=== PATIENT | female | born 1940 | race Caucasian/White ===

== ENCOUNTER 2017-05-07 18:46 | Emergency (ER) | payer MEDICARE, OTHER ==
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
--- NOTE | 2017-05-07 19:58 | CT ---
EXAMINATION TYPE: CT brain cspine wo con, CT facial bones wo con DATE OF EXAM: 05/07/2017 COMPARISON: CT brain January 26, 2015 HISTORY: Fall today. Left orbital bruising headache and neck pain. CT DLP: 1412.83 (accession [id number]), 499.49 (accession [id number]) mGycm. Automated Exposure Control f or Dose Reduction was Utilized. TECHNIQUE: CT scan of the head , facial bones, and cervical spine are all performed without contrast. FINDINGS: There is no acute intracranial hemorrhage or midline shift identified. There is ventricul ar and sulcal prominence consistent with diffuse cerebral atrophy. Some low-attenuation periventricu lar white matter is redemonstrated. The calvarium is intact. Nasal bridge and bones are intact. Orbital floors and gutierrez are intact. The globes are intact bilater ally. Intraconal fat is preserved bilaterally. The zygomatic arches are intact bilaterally. There is small hematoma over the left zygoma noted extending to left lateral infraorbital level seen best maureen nal image 21. There is degenerative change in bilateral temporomandibular joints again seen with flat tened mandibular condyles and joint space loss. Pterygoid plates are intact. Visualized paranasal sin uses are clear. Cervical spine is visualized in its entirety from C1 through upper thoracic levels and demonstrates s atisfactory alignment without evidence of acute fracture or dislocation. Prevertebral soft tissue ap pears within normal limits. The C1-C2 articulation is within normal limits on the coronal images. Osseous structures are demineralized. There is 5 mm cystic lesion in the dens just left of midline pr esumed benign. Vertebral body heights and disc space heights are fairly well-maintained. Spinal canal is preserved. Review of axial images shows multilevel uncovertebral facet degenerative changes bilat erally contributing to multilevel neural foraminal narrowing. There is calcified pleural parenchymal scarring in the left lung apex and some pleural thickening in the right lung apex noted. Mild to mode rate calcified plaque in bilateral carotid bulbs is present. IMPRESSION: 1. There is no acute fracture or dislocation evident in the cervical spine. 2. No acute intracranial hemorrhage or midline shift is seen. There is mild diffuse cerebral atrophy and chronic small vessel ischemic change redemonstrated. 3. No acute facial bone fracture or dislocation. Small hematoma left zygoma extending to lateral infr aorbital region is present.
[2017-05-07 20:52] VITALS: BP 128/83; PULSE 81; RESP 19; TEMP 97.7
== END 2017-05-07 20:50 | disposition home or self-care (01) ==
LOC: EC 18:46
DX: S00.83XA Contusion of other part of head, initial encounter (principal); S05.12XA Contusion of eyeball and orbital tissues, left eye, initial encounter; M54.2 Cervicalgia; S80.211A Abrasion, right knee, initial encounter; S80.212A Abrasion, left knee, initial encounter; R40.2412 Glasgow coma scale score 13-15, at arrival to emergency department; M25.532 Pain in left wrist; E11.9 Type 2 diabetes mellitus without complications; W01.198A Fall on same level from slipping, tripping and stumbling with subsequent striking against other object, initial encounter; G40.909 Epilepsy, unspecified, not intractable, without status epilepticus; Z79.84 Long term (current) use of oral hypoglycemic drugs; Z79.899 Other long term (current) drug therapy; Z88.5 Allergy status to narcotic agent; Y93.01 Activity, walking, marching and hiking; E07.9 Disorder of thyroid, unspecified
CPT/HCPCS: 70450; 70486; 72125; 99284

== ENCOUNTER 2017-11-02 12:34 | Inpatient (IN) | payer MEDICARE, OTHER ==
[2017-11-02 12:50] LABS: Glucose,Whole Blood >600 mg/dL (75-99)
[2017-11-02] MEDS ORDERED: ONDANSETRON 4 MG/2 ML VIAL IVP STA (12:56)
[2017-11-02] MEDS ORDERED: SODIUM CHLORIDE 0.9% 1,000 ML IV STA (12:56)
[2017-11-02] MEDS ORDERED: SODIUM CHLORIDE 0.9% 2,000 ML IV STA (12:56)
[2017-11-02] MEDS ORDERED: INSULIN REGULAR 100 UNIT in SODIUM CHLORIDE 0.9% 100 ML IV ONE (13:02)
[2017-11-02 13:40] LABS: Basophils % (A) 0 %; Eosinophils % (A) 0 %; HCT 38.5 % (34.0-46.0); HGB 13.1 gm/dL (11.4-16.0); Lymphocytes # (A) 1.5 k/uL (1.0-4.8); Lymphocytes % (A) 19 %; MCH 30.4 pg (25.0-35.0); MCHC 33.9 g/dL (31.0-37.0); MCV 89.6 fL (80.0-100.0); Monocytes # (A) 0.5 k/uL (0-1.0); Monocytes % (A) 7 %; Neutrophils # (A) 5.6 k/uL (1.3-7.7); Neutrophils % (A) 73 %; Platelet Count 214 k/uL (150-450); RDW 12.3 % (11.5-15.5); WBC 7.6 k/uL (3.8-10.6)
[2017-11-02 13:41] LABS: Appearance,Urine Clear (Clear); Bilirubin,Urine Negative (Negative); Blood,Urine Negative (Negative); Color,Urine Light Yellow; Glucose,Urine (UA) 4+ (Negative); Ketones,Urine Negative (Negative); Leukocyte Esterase,Urine Negative (Negative); Nitrite,Urine Negative (Negative); PH, Urine 6.5 (5.0-8.0); Protein,Urine Negative (Negative); Urobilinogen,Urine <2.0 mg/dL (<2.0)
--- NOTE | 2017-11-02 13:47 | ED ---
General Adult HPI - General Chief complaint: Recheck/Abnormal Lab/Rx Stated complaint: High Sugar-diabetic Time Seen by Provider: 11/02/17 12:50 Source: patient Mode of arrival: ambulatory Limitations: no limitations - History of Present Illness Initial comments: 77 years old female was sent in by Dr. Bettencourt for high sugar she said her sugar has been I for the last 4 months and she said it started with the some infection in her mouth and when she was started some antibiotics she denies any headaches no blurred vision no slurred speech no chest pain no shortness of breath he denies any nausea vomiting and abdominal pain or or any other symptoms of diabetic ketoacidosis no frequency urgency dysuria no symptoms of TIA or CVA - Related Data Home Medications Medication Instructions Recorded Confirmed Butalb/APAP/Caff 50-325-40Mg 1 tab PO TID PRN 05/07/17 11/02/17 [Fioricet 50-325-40] Levothyroxine Sodium [Synthroid] 50 mcg PO QAM 05/07/17 11/02/17 Nortriptyline [Pamelor] 25 mg PO HS 05/07/17 11/02/17 Phenytoin Sodium Extended 100 mg PO QAM 05/07/17 11/02/17 [Dilantin] Phenytoin Sodium Extended 200 mg PO HS 05/07/17 11/02/17 [Dilantin] Spironolactone-Hctz 25-25Mg 1 tab PO QAM 05/07/17 11/02/17 [Aldactazide 25-25Mg] glipiZIDE [Glucotrol] 5 mg PO BID 05/07/17 11/02/17 ALPRAZolam [Xanax] 1 mg PO TID PRN 11/02/17 11/02/17 Ibuprofen [Motrin] 600 mg PO TID PRN 11/02/17 11/02/17 Lactulose 10 gm PO DAILY PRN 11/02/17 11/02/17 Allergies Allergy/AdvReac Type Severity Reaction Status Date / Time hydrocodone [From Vicodin] AdvReac Nausea & Verified 11/02/17 13:20 Vomiting Review of Systems ROS Statement: Those systems with pertinent positive or pertinent negative responses have been documented in the HPI. ROS Other: All systems not noted in ROS Statement are negative. Past Medical History Past Medical History: Diabetes Mellitus, Seizure Disorder, Thyroid Disorder History of Any Multi-Drug Resistant Organisms: None Reported Past Surgical History: Cholecystectomy Past Psychological History: No Psychological Hx Reported Smoking Status: Never smoker Past Alcohol Use History: Rare Past Drug Use History: None Reported General Exam - General Exam Comments Initial Comments: General: The patient is awake and alert, in no distress, and does not appear acutely ill. GCS is 15 Skin: Skin is warm and dry and she looks very dehydrated Eye: Pupils are equal, round and reactive to light, extra-ocular movements are intact; there is normal conjunctiva bilaterally. Ears, nose, mouth and throat: Definitely dehydrated Neck: The neck is supple, there is no tenderness Cardiovascular: There is a regular rate and rhythm. No murmur, rub or gallop is appreciated. Respiratory: To auscultation bilateral, no wheezing no rhonchi no distress respiratory milton noticed Gastrointestinal: Soft, non-distended, non-tender abdomen without masses or organomegaly noted. There is no rebound or guarding present. Bowel sounds are unremarkable. Back: There is no tenderness to palpation in the midline. There is no obvious deformity. Musculoskeletal: Normal ROM, no tenderness, There is no pedal edema. There is no calf tenderness or swelling. No cords were appreciated. Neurological: CN II-XII intact, Cranial nerves III through XII are intact. There are no obvious motor or sensory deficits. Coordination appears grossly intact. Speech is normal. Psychiatric: Cooperative, appropriate mood & affect, normal judgment. Limitations: no limitations Course Vital Signs 11/02/17 12:42 Temperature 98.3 F Pulse Rate 79 Respiratory 20 Rate Blood Pressure 138/69 O2 Sat by Pulse 98 Oximetry She was reassessed she noticed that her CBC is unremarkable CO2 is 29 [id number] has no ketones she is definitely not a ketoacidosis is blood sugars so high and she is so dehydrated her on now insulin infusion she be admitted to Dr. Molina service this was discussed with the patient and patient is agreeable with the Medical Decision Making - Lab Data Result diagrams: 11/02/17 13:24 11/02/17 13:24 Lab Results 11/02/17 11/02/17 11/02/17 Range/Units 12:47 13:24 13:24 WBC 7.6 (3.8-10.6) k/uL RBC 4.30 (3.80-5.40) m/uL Hgb 13.1 (11.4-16.0) gm/dL Hct 38.5 (34.0-46.0) % MCV 89.6 (80.0-100.0) fL MCH 30.4 (25.0-35.0) pg MCHC 33.9 (31.0-37.0) g/dL RDW 12.3 (11.5-15.5) % Plt Count 214 (150-450) k/uL Neutrophils % 73 % Lymphocytes % 19 % Monocytes % 7 % Eosinophils % 0 % Basophils % 0 % Neutrophils # 5.6 (1.3-7.7) k/uL Lymphocytes # 1.5 (1.0-4.8) k/uL Monocytes # 0.5 (0-1.0) k/uL Eosinophils # 0.0 (0-0.7) k/uL Basophils # 0.0 (0-0.2) k/uL Sodium 133 L (137-145) mmol/L Potassium 4.3 (3.5-5.1) mmol/L Chloride 91 L (98-107) mmol/L Carbon Dioxide 29 (22-30) mmol/L Anion Gap 13 mmol/L BUN 19 H (7-17) mg/dL Creatinine 0.50 L (0.52-1.04) mg/dL Est GFR (CKD-EPI)AfAm >90 (>60 ml/min/1.73 sqM) Est GFR (CKD-EPI)NonAf >90 (>60 ml/min/1.73 sqM) Glucose 655 H* (74-99) mg/dL POC Glucose (mg/dL) >600 H (75-99) mg/dL POC Glu Office Clerk Routine ID Plasma Lactic Acid Hany (0.7-2.0) mmol/L Calcium 9.5 (8.4-10.2) mg/dL Total Bilirubin 0.4 (0.2-1.3) mg/dL AST 20 (14-36) U/L ALT 23 (9-52) U/L Alkaline Phosphatase 137 H (38-126) U/L Total Protein 6.8 (6.3-8.2) g/dL Albumin 3.9 (3.5-5.0) g/dL Amylase 55 (30-110) U/L Lipase 268 (23-300) U/L Urine Color Urine Appearance (Clear) Urine pH (5.0-8.0) Ur Specific [place] (1.001-1.035) Urine Protein (Negative) Urine Glucose (UA) (Negative) Urine Ketones (Negative) Urine Blood (Negative) Urine Nitrite (Negative) Urine Bilirubin (Negative) Urine Urobilinogen (<2.0) mg/dL Ur Leukocyte Esterase (Negative) 11/02/17 11/02/17 Range/Units 13:24 13:24 WBC (3.8-10.6) k/uL RBC (3.80-5.40) m/uL Hgb (11.4-16.0) gm/dL Hct (34.0-46.0) % MCV (80.0-100.0) fL MCH (25.0-35.0) pg MCHC (31.0-37.0) g/dL RDW (11.5-15.5) % Plt Count (150-450) k/uL Neutrophils % % Lymphocytes % % Monocytes % % Eosinophils % % Basophils % % Neutrophils # (1.3-7.7) k/uL Lymphocytes # (1.0-4.8) k/uL Monocytes # (0-1.0) k/uL Eosinophils # (0-0.7) k/uL Basophils # (0-0.2) k/uL Sodium (137-145) mmol/L Potassium (3.5-5.1) mmol/L Chloride (98-107) mmol/L Carbon Dioxide (22-30) mmol/L Anion Gap mmol/L BUN (7-17) mg/dL Creatinine (0.52-1.04) mg/dL Est GFR (CKD-EPI)AfAm (>60 ml/min/1.73 sqM) Est GFR (CKD-EPI)NonAf (>60 ml/min/1.73 sqM) Glucose (74-99) mg/dL POC Glucose (mg/dL) (75-99) mg/dL POC Glu Office Clerk Routine ID Plasma Lactic Acid Hany 1.7 (0.7-2.0) mmol/L Calcium (8.4-10.2) mg/dL Total Bilirubin (0.2-1.3) mg/dL AST (14-36) U/L ALT (9-52) U/L Alkaline Phosphatase (38-126) U/L Total Protein (6.3-8.2) g/dL Albumin (3.5-5.0) g/dL Amylase (30-110) U/L Lipase (23-300) U/L Urine Color Light Yellow Urine Appearance Clear (Clear) Urine pH 6.5 (5.0-8.0) Ur Specific [place] 1.030 (1.001-1.035) Urine Protein Negative (Negative) Urine Glucose (UA) 4+ H (Negative) Urine Ketones Negative (Negative) Urine Blood Negative (Negative) Urine Nitrite Negative (Negative) Urine Bilirubin Negative (Negative) Urine Urobilinogen <2.0 (<2.0) mg/dL Ur Leukocyte Esterase Negative (Negative) Disposition Clinical Impression: Hyperglycemia Disposition: ADMITTED IP TO THIS [facility] Condition: Good Referrals: Ling Bains MD [Primary Care Provider] - 1-2 days
[2017-11-02 13:48] LABS: ALT 23 U/L (9-52); AST 20 U/L (14-36); Albumin 3.9 g/dL (3.5-5.0); Alkaline Phosphatase 137 U/L (38-126); Amylase 55 U/L (30-110); Anion Gap 13 mmol/L; Blood Urea Nitrogen 19 mg/dL (7-17); Calcium 9.5 mg/dL (8.4-10.2); Carbon Dioxide 29 mmol/L (22-30); Chloride 91 mmol/L (98-107); Lipase 268 U/L (23-300); Potassium 4.3 mmol/L (3.5-5.1); Sodium 133 mmol/L (137-145); Total Bilirubin 0.4 mg/dL (0.2-1.3); Total Protein 6.8 g/dL (6.3-8.2)
[2017-11-02 13:59] LABS: Glucose 655 mg/dL (74-99)
[2017-11-02] MEDS ORDERED: POTASSIUM BICARBONATE/CIT AC 20 MEQ TABLET.EFF PO ONE (14:02)
[2017-11-02] MEDS ORDERED: NALOXONE 0.4 MG/ML 1 ML VIAL IV PRN (14:09)
[2017-11-02] MEDS ORDERED: ALPRAZolam 1 MG TAB PO PRN (14:12)
[2017-11-02] MEDS ORDERED: LACTULOSE 20 GM/30 ML CUP PO PRN (14:12)
[2017-11-02] MEDS ORDERED: BUTALB/APAP/CAFF 50-325-40MG TAB PO PRN (14:12)
[2017-11-02 14:40] LABS: Glucose,Whole Blood 471 mg/dL (75-99)
[2017-11-02] MEDS ORDERED: IBUPROFEN 600 MG TAB PO PRN (15:03)
--- NOTE | 2017-11-02 15:22 | XR ---
EXAMINATION: XR chest 2V DATE AND TIME: 11/02/2017 2:59 PM ORDERING PROVIDER: Melissa Morrison MD CLINICAL INDICATION: abdominal pain TECHNIQUE: PA and lateral COMPARISON: None. DESCRIPTION: The lungs are clear. The pleural spaces are negative. The cardiac silhouette is not enlarged. The mediastinal and pleural silhouettes are unremarkable. The skeletal structures are intact without focal findings. The soft tissues are unremarkable. IMPRESSION: NO ACUTE PROCESS.
--- NOTE | 2017-11-02 15:24 | XR ---
EXAMINATION TYPE: XR KUB, 2 views DATE OF EXAM: 11/02/2017 COMPARISON: NONE HISTORY: Pain TECHNIQUE: Upright views FINDINGS: There is no pneumoperitoneum or pneumatosis. The bowel gas pattern is negative for obstruct ion. There is, however, a prominent volume of stool throughout the colon. No acute bony or soft tissue findings. IMPRESSION: PROMINENT VOLUME OF PANCOLONIC STOOL.
[2017-11-02 15:25] LABS: Glucose,Whole Blood 300 mg/dL (75-99)
[2017-11-02 15:45] VITALS: RESP 16
[2017-11-02 17:54] LABS: Glucose,Whole Blood 174 mg/dL (75-99)
[2017-11-02] MEDS: glipiZIDE 5 MG TAB PO SCH (18:14)
[2017-11-02 18:34] VITALS: BMI 18.1
[2017-11-02] MEDS ORDERED: ACETAMINOPHEN TAB 500 MG TAB PO PRN (18:46)
[2017-11-02 19:40] LABS: Glucose,Whole Blood 164 mg/dL (75-99)
--- NOTE | 2017-11-02 19:56 | HP ---
HISTORY AND PHYSICAL CHIEF COMPLAINT: High blood sugars DATE OF SERVICE: 11/02/2017. HISTORY OF PRESENT ILLNESS: This 77-year-old woman with a past history of diabetes, seizures, hypothyroidism , being followed by Dr. Bains in the outpatient setting recently had candidiasis of the mouth. The patient was taking nystatin orally. The patient was noted to have high blood sugars. Readings were above the chart today and the patient was direct admit to [facility] and found to have blood sugars of 655, ketones negative. The patient is started on insulin drip at 4 units/hours. Sugars are coming down to 174. There is no history of fever, rigors. No history of headache, loss of conscious or seizures. PAST MEDICAL HISTORY: History of diabetes, seizure disorder, hypothyroidism, cholecystectomy, tubal ligation. HOME MEDICATIONS: 1. Glucotrol 5 mg p.o. b.i.d. 2. Aldactazide 1 p.o. q.a.m. 3. Dilantin 100 mg q.a.m. and 200 mg q.h.s. 4. Pamelor nortriptyline 25 mg q.h.s. 5. Synthroid 50 mcg p.o. q.a.m. 6. Lactose 10 g p.o. daily p.r.n. 7. Motrin 600 mg t.i.d. p.r.n. 8. Fioricet 1 p.o. t.i.d. p.r.n. 9. Xanax 1 mg p.o. t.i.d. p.r.n. ALLERGIES: VICODIN. FAMILY HISTORY: History of cancer. SOCIAL HISTORY: No history of smoking, no history of alcohol. REVIEW OF SYSTEMS: ENT: Mentioned earlier. CARDIOVASCULAR: As mentioned. RESPIRATORY: As mentioned. GI: As mentioned. : No dysuria. NERVOUS SYSTEM: No numbness, weakness. ALLERGY/IMMUNOLOGY: No history of asthma or hay fever. MUSCULOSKELETAL: As mentioned. HEMATOLOGY: No history of anemia. ENDOCRINE: As mentioned earlier. CONSTITUTIONAL: As mentioned earlier. DERMATOLOGY: Negative. RHEUMATOLOGY: Negative. PSYCHIATRY: As mentioned earlier. PHYSICAL EXAMINATION: Alert and oriented x3. Pulse is 75, blood pressure 125/60, respirations 16, temperature 98 degrees, pulse ox 98% room air. HEENT: Conjunctivae normal. Oral mucosa moist. NECK: No jugular venous distention. No carotid bruit. No lymph node enlargement. CARDIOVASCULAR: S1, S2. RESPIRATORY: Breath sounds diminished in the bases. A few scattered rhonchi. No crackles. ABDOMEN: Soft, nontender. No mass palpable. LEGS: No edema, no swelling. NERVOUS SYSTEM: Higher functions as mentioned earlier, moves all 4 limbs, no focal motor deficits. LYMPHATICS: No lymphadenopathy in the neck, axillae, groin. SKIN: No ulcer, rash or bleeding. LABS: CBC within normal. Sodium 133, potassium 4.3, glucose 655. ASSESSMENT: 1. Poorly controlled diabetes mellitus and diabetic hyperosmolar diabetic state. 2. Diabetes mellitus type 2. 3. Recent oral candidiasis. 4. Hyponatremia. 5. History of seizure disorder. 6. Hypothyroidism. 7. History of cholecystectomy. 8. History of tubal ligation. 9. FULL CODE. RECOMMENDATIONS AND DISCUSSION: This 77-year-old woman who presented with multiple complex medical issues, we will monitor the patient closely. Continue the current management and symptomatic treatment. Continue with insulin drip. Otherwise resume the home medications. Accu-Cheks a.c. and at bedtime once drip is over. Otherwise, I would also recommend continue with nystatin and also recommend multivitamin supplementation. The prognosis is guarded because of multiple complex medical issues and further recommendations to follow. I would also recommend copy forwarded to Dr. Bains who is the primary physician. WALLY / ARNEL: [id number] / [id number]
[2017-11-02] MEDS: PHENYTOIN SODIUM EXTENDED 100 MG CAP PO SCH (20:42)
[2017-11-02] MEDS: NORTRIPTYLINE 25 MG CAP PO SCH (20:42)
[2017-11-02] MEDS: HEPARIN SODIUM,PORCINE 5,000 UNIT/ML 1 ML VIAL SQ SCH (20:43)
[2017-11-02] MEDS: NYSTATIN 100,000 UNIT/ML SUSP 500,000 UNIT/5 ML CUP PO SCH ×2 (20:43→22:43)
[2017-11-02 22:03] LABS: Glucose,Whole Blood 223 mg/dL (75-99)
[2017-11-03 00:47] LABS: Glucose,Whole Blood 65 mg/dL (75-99)
[2017-11-03 01:26] LABS: Glucose,Whole Blood 120 mg/dL (75-99)
[2017-11-03 02:10] LABS: Glucose,Whole Blood 152 mg/dL (75-99)
[2017-11-03 03:14] LABS: Glucose,Whole Blood 180 mg/dL (75-99)
[2017-11-03 05:15] LABS: Glucose,Whole Blood 182 mg/dL (75-99)
[2017-11-03] MEDS: LEVOTHYROXINE 50 MCG TAB PO SCH (06:10)
[2017-11-03 07:10] LABS: Glucose,Whole Blood 155 mg/dL (75-99)
[2017-11-03] MEDS: HEPARIN SODIUM,PORCINE 5,000 UNIT/ML 1 ML VIAL SQ SCH ×2 (07:36→21:54)
[2017-11-03] MEDS: NYSTATIN 100,000 UNIT/ML SUSP 500,000 UNIT/5 ML CUP PO SCH ×4 (07:36→21:54)
[2017-11-03] MEDS: SPIRONOLACTONE-HCTZ 25-25MG 1 EACH TAB PO SCH (07:37)
[2017-11-03] MEDS: PHENYTOIN SODIUM EXTENDED 100 MG CAP PO SCH ×2 (07:37→21:55)
[2017-11-03] MEDS: glipiZIDE 5 MG TAB PO SCH ×2 (08:02→17:23)
[2017-11-03 09:00] LABS: Glucose,Whole Blood 223 mg/dL (75-99)
[2017-11-03 11:28] LABS: Glucose,Whole Blood 305 mg/dL (75-99)
--- NOTE | 2017-11-03 11:33 | P.PN ---
Subjective Progress Note Date: 11/03/17 Principal diagnosis: Hyperglycemia, dehydration This is a 77-year-old female patient who follows with Dr. Bains as an outpatient that was directly admitted secondary to uncontrolled blood glucose. The patient was found to have a blood sugar greater than 600 on admission. She' s been on oral agents at home and the family states that she has poor oral intake mostly because she is afraid of her lites sugar being elevated. The patient has never had any outpatient diabetes education that she is aware of. The family is at the bedside during my examination and are helpful in obtaining the patient's history. She is alert and oriented 3. She states she feels much better than yesterday. Her blood sugars down to 155 today and we will stop her drip. Continue her Glucotrol and add sliding scale. I will place an order for diabetes education and the family is willing to go with the patient for outpatient classes. We will obtain a hemoglobin A1c. Objective - Vital Signs Vital signs: Vital Signs Temp 98.6 F 11/03/17 07:00 Pulse 68 11/03/17 07:00 Resp 16 11/03/17 07:00 BP 102/65 11/03/17 07:00 Pulse Ox 97 11/03/17 07:00 Intake & Output 11/02/17 11/03/17 11/03/17 18:59 06:59 18:59 Intake Total 17.944 602.571 2.222 Balance 17.944 602.571 2.222 Weight 40.8 kg 40.8 kg Intake: Intake, IV Titration 17.944 12.571 2.222 Amount Insulin Regular 100 unit 17.944 12.571 2.222 In Sodium Chloride 0.9% 100 ml @ 3 UNIT/HR 3.03 mls/hr IV .Q24H ONE Rx#: [id number] Oral 590 Other: Voiding Method Toilet Toilet Toilet # Voids 3 3 - Constitutional General appearance: Present: thin - EENT Eyes: Present: normal appearance ENT: Present: normal oropharynx Ears: bilateral: normal - Neck Neck: Present: normal ROM - Respiratory Respiratory: bilateral: CTA - Cardiovascular Rhythm: regular Heart sounds: normal: S1, S2 - Gastrointestinal General gastrointestinal: Present: normal bowel sounds - Neurologic Neurologic: Present: CNII-XII intact - Musculoskeletal Musculoskeletal: Present: generalized weakness - Psychiatric Psychiatric: Present: A&O x's 3 - Labs CBC & Chem 7: 11/02/17 13:24 11/02/17 13:24 Labs: Abnormal Lab Results - Last 24 Hours (Table) 11/02/17 11/02/17 11/02/17 Range/Units 12:47 13:24 13:24 Sodium 133 L (137-145) mmol/L Chloride 91 L (98-107) mmol/L BUN 19 H (7-17) mg/dL Creatinine 0.50 L (0.52-1.04) mg/dL Glucose 655 H* (74-99) mg/dL POC Glucose (mg/dL) >600 H (75-99) mg/dL Alkaline Phosphatase 137 H (38-126) U/L Urine Glucose (UA) 4+ H (Negative) 11/02/17 11/02/17 11/02/17 Range/Units 14:23 15:20 17:44 Sodium (137-145) mmol/L Chloride (98-107) mmol/L BUN (7-17) mg/dL Creatinine (0.52-1.04) mg/dL Glucose (74-99) mg/dL POC Glucose (mg/dL) 471 H 300 H 174 H (75-99) mg/dL Alkaline Phosphatase (38-126) U/L Urine Glucose (UA) (Negative) 11/02/17 11/02/17 11/03/17 Range/Units 19:39 22:01 00:41 Sodium (137-145) mmol/L Chloride (98-107) mmol/L BUN (7-17) mg/dL Creatinine (0.52-1.04) mg/dL Glucose (74-99) mg/dL POC Glucose (mg/dL) 164 H 223 H 65 L (75-99) mg/dL Alkaline Phosphatase (38-126) U/L Urine Glucose (UA) (Negative) 11/03/17 11/03/17 11/03/17 Range/Units 01:24 02:10 03:13 Sodium (137-145) mmol/L Chloride (98-107) mmol/L BUN (7-17) mg/dL Creatinine (0.52-1.04) mg/dL Glucose (74-99) mg/dL POC Glucose (mg/dL) 120 H 152 H 180 H (75-99) mg/dL Alkaline Phosphatase (38-126) U/L Urine Glucose (UA) (Negative) 11/03/17 11/03/17 11/03/17 Range/Units 05:14 06:59 08:58 Sodium (137-145) mmol/L Chloride (98-107) mmol/L BUN (7-17) mg/dL Creatinine (0.52-1.04) mg/dL Glucose (74-99) mg/dL POC Glucose (mg/dL) 182 H 155 H 223 H (75-99) mg/dL Alkaline Phosphatase (38-126) U/L Urine Glucose (UA) (Negative) Microbiology - Last 24 Hours (Table) 11/02/17 13:24 Urine Culture - Final Urine,Clean Catch Assessment and Plan Assessment: Diabetic hyperosmolar hyperglycemia Acute dehydration Diabetes mellitus type 2 uncontrolled Hyponatremia Seizure disorder Hypothyroidism Hyponatremia Plan: Stop insulin drip. Continue with oral Glucotrol and add sliding scale. Accu- Cheks before meals and at bedtime. Consult diabetes education. Obtain hemoglobin A1c. If this is greater than 10 she will be a candidate for insulin at home until her A1c is less than 8%. Repeat labs in the morning. Replace electrolytes per protocol. Overall the patient is doing well and we will continue with treatment and plan for discharge home in the next 24-48 hours.
[2017-11-03] MEDS: FOLIC ACID 1 MG TAB PO SCH (12:21)
[2017-11-03] MEDS: MULTIVITAMINS, THERA 1 EACH TAB PO SCH (12:21)
[2017-11-03] MEDS: INSULIN ASPART 100 UNIT/ML 1 ML 10 ML VIAL SQ SCH ×5 (12:22→21:53)
[2017-11-03 16:49] LABS: Glucose,Whole Blood 217 mg/dL (75-99)
[2017-11-03 20:10] LABS: Glucose,Whole Blood 116 mg/dL (75-99)
[2017-11-03 20:22] LABS: Hemoglobin A1C 14.6 % (4.0-6.0)
[2017-11-03] MEDS: NORTRIPTYLINE 25 MG CAP PO SCH (21:55)
[2017-11-03 22:26] VITALS: PULSE 69
[2017-11-04] MEDS: LEVOTHYROXINE 50 MCG TAB PO SCH (06:20)
[2017-11-04 07:30] LABS: Glucose,Whole Blood 160 mg/dL (75-99)
[2017-11-04] MEDS: glipiZIDE 5 MG TAB PO SCH (07:33)
[2017-11-04] MEDS: SPIRONOLACTONE-HCTZ 25-25MG 1 EACH TAB PO SCH (07:34)
[2017-11-04] MEDS: HEPARIN SODIUM,PORCINE 5,000 UNIT/ML 1 ML VIAL SQ SCH (07:34)
[2017-11-04] MEDS: NYSTATIN 100,000 UNIT/ML SUSP 500,000 UNIT/5 ML CUP PO SCH ×2 (07:34→12:44)
[2017-11-04] MEDS: PHENYTOIN SODIUM EXTENDED 100 MG CAP PO SCH (07:34)
[2017-11-04] MEDS: INSULIN ASPART 100 UNIT/ML 1 ML 10 ML VIAL SQ SCH ×4 (07:35→12:45)
[2017-11-04 07:52] LABS: Basophils % (A) 0 %; Eosinophils # (A) 0.1 k/uL (0-0.7); Eosinophils % (A) 2 %; HCT 35.5 % (34.0-46.0); HGB 12.2 gm/dL (11.4-16.0); Lymphocytes # (A) 1.9 k/uL (1.0-4.8); Lymphocytes % (A) 32 %; MCHC 34.4 g/dL (31.0-37.0); MCV 90.1 fL (80.0-100.0); Mean Platelet Volume 7.2; Monocytes # (A) 0.4 k/uL (0-1.0); Monocytes % (A) 7 %; Neutrophils # (A) 3.2 k/uL (1.3-7.7); Neutrophils % (A) 55 %; Platelet Count 201 k/uL (150-450); RBC 3.93 m/uL (3.80-5.40); RDW 12.3 % (11.5-15.5); WBC 5.8 k/uL (3.8-10.6)
[2017-11-04 08:07] LABS: Anion Gap 8 mmol/L; Blood Urea Nitrogen 9 mg/dL (7-17); Calcium 8.4 mg/dL (8.4-10.2); Carbon Dioxide 27 mmol/L (22-30); Chloride 105 mmol/L (98-107); Glucose 164 mg/dL (74-99); Potassium 3.7 mmol/L (3.5-5.1); Sodium 140 mmol/L (137-145)
[2017-11-04 10:10] VITALS: BP 110/64; TEMP 99.1
[2017-11-04 11:28] LABS: Glucose,Whole Blood 268 mg/dL (75-99)
[2017-11-04] MEDS: MULTIVITAMINS, THERA 1 EACH TAB PO SCH (12:44)
[2017-11-04] MEDS: FOLIC ACID 1 MG TAB PO SCH (12:44)
--- NOTE | 2017-11-04 14:14 | P.DS ---
Providers Date of admission: 11/02/17 14:09 Attending physician: Mirela Molina Primary care physician: Herson Reinoso [facility] Course: 77-year-old female patient who follows with Dr. Bains as an outpatient that was directly admitted secondary to uncontrolled blood glucose. The patient was found to have a blood sugar greater than 600 on admission. She's been on oral agents at home and the family states that she has poor oral intake mostly because she is afraid of her lites sugar being elevated. The patient has never had any outpatient diabetes education that she is aware of. The family is at the bedside during my examination and are helpful in obtaining the patient's history. She is alert and oriented 3. She states she feels much better than yesterday. Her blood sugars down to 155 today and we will stop her drip. Continue her Glucotrol and add sliding scale. I will place an order for diabetes education and the family is willing to go with the patient for outpatient classes. We will obtain a hemoglobin A1c. 11/04/2017 Patient blood sugars are well controlled at this time patient will be discharged today with 22 units of Lantus counseling regarding Lantus use was provided we're able to provide the patient with a pen, glucometer and the test strips will be provided patient need to check the blood sugars twice a day and patient will follow Dr. Bains as an outpatient For rest of the other chronic medical problems please refer to progress note from as today. PHYSICAL EXAMINATION: GENERAL: The patient is alert and oriented x3, not in any acute distress. Well developed, well nourished. HEENT: Pupils are round and equally reacting to light. EOMI. No scleral icterus. No conjunctival pallor. Normocephalic, atraumatic. No pharyngeal erythema. No thyromegaly. CARDIOVASCULAR: S1 and S2 present. No murmurs, rubs, or gallops. PULMONARY: Chest is clear to auscultation, no wheezing or crackles. ABDOMEN: Soft, nontender, nondistended, normoactive bowel sounds. No palpable organomegaly. MUSCULOSKELETAL: No joint swelling or deformity. EXTREMITIES: No cyanosis, clubbing, or pedal edema. NEUROLOGICAL: Gross neurological examination did not reveal any focal deficits. SKIN: No rashes. Patient Condition at Discharge: Good Plan - Discharge Summary New Discharge Prescriptions: New Insulin Glargine,Hum.rec.anlog [Lantus Solostar] 22 unit SQ HS #1 syr Discontinued Spironolactone-Hctz 25-25Mg [Aldactazide 25-25Mg] 1 tab PO QAM No Action glipiZIDE [Glucotrol] 5 mg PO BID Levothyroxine Sodium [Synthroid] 50 mcg PO QAM Phenytoin Sodium Extended [Dilantin] 200 mg PO HS Nortriptyline [Pamelor] 25 mg PO HS Phenytoin Sodium Extended [Dilantin] 100 mg PO QAM Butalb/APAP/Caff 50-325-40Mg [Fioricet 50-325-40] 1 tab PO TID PRN PRN Reason: Headache ALPRAZolam [Xanax] 1 mg PO TID PRN PRN Reason: Anxiety Ibuprofen [Motrin] 600 mg PO TID PRN PRN Reason: Pain Lactulose 10 gm PO DAILY PRN PRN Reason: Constipation Discharge Medication List Butalb/APAP/Caff 50-325-40Mg [Fioricet 50-325-40] 1 tab PO TID PRN 05/07/17 [ History] Levothyroxine Sodium [Synthroid] 50 mcg PO QAM 05/07/17 [History] Nortriptyline [Pamelor] 25 mg PO HS 05/07/17 [History] Phenytoin Sodium Extended [Dilantin] 100 mg PO QAM 05/07/17 [History] Phenytoin Sodium Extended [Dilantin] 200 mg PO HS 05/07/17 [History] glipiZIDE [Glucotrol] 5 mg PO BID 05/07/17 [History] ALPRAZolam [Xanax] 1 mg PO TID PRN 11/02/17 [History] Ibuprofen [Motrin] 600 mg PO TID PRN 11/02/17 [History] Lactulose 10 gm PO DAILY PRN 11/02/17 [History] Insulin Glargine,Hum.rec.anlog [Lantus Solostar] 22 unit SQ HS #1 syr 11/04/17 [ Rx] Follow up Appointment(s)/Referral(s): Ling Bains MD [Primary Care Provider] - 11/12/17 1:30 pm Patient Instructions/Handouts: Insulin Glargine (By injection), Diabetic Hyperglycemia (DC) Discharge Disposition: HOME SELF-CARE
== END 2017-11-04 14:45 | disposition home or self-care (01) | DRG 638 ==
LOC: EC 12:34 → 5MS5E 14:09
PROVIDERS: ADMIT Hospitalist; ATTEND Hospitalist
DX: E11.00 Type 2 diabetes mellitus with hyperosmolarity without nonketotic hyperglycemic-hyperosmolar coma (NKHHC) (principal); E87.1 Hypo-osmolality and hyponatremia; E86.0 Dehydration; G40.909 Epilepsy, unspecified, not intractable, without status epilepticus; E03.9 Hypothyroidism, unspecified; Z79.84 Long term (current) use of oral hypoglycemic drugs; Z90.49 Acquired absence of other specified parts of digestive tract; Z98.51 Tubal ligation status; Z79.1 Long term (current) use of non-steroidal anti-inflammatories (NSAID); Z79.890 Hormone replacement therapy; Z79.891 Long term (current) use of opiate analgesic; Z79.899 Other long term (current) drug therapy; Z88.5 Allergy status to narcotic agent; Z85.9 Personal history of malignant neoplasm, unspecified; Z71.3 Dietary counseling and surveillance; Z71.89 Other specified counseling
CPT/HCPCS: 36415; 71046; 74018; 80048; 80053; 81003; 82150; 83036; 83605; 83690; 85025; 87040; 87086; 96374; 99284

== ENCOUNTER → 2018-08-21 | Outpatient (CLI) | payer MEDICARE, OTHER | END | disposition home or self-care (01) | LOC: LABWHC1 12:48 | PROVIDERS: ATTEND Psychiatry & Neurology Neurology | DX: Z53.9 Procedure and treatment not carried out, unspecified reason (principal) ==

== ENCOUNTER → 2018-08-22 | Outpatient (CLI) | payer MEDICARE, OTHER | LOC: LABWHC1 06:32 | PROVIDERS: ATTEND Psychiatry & Neurology Neurology | DX: G40.909 Epilepsy, unspecified, not intractable, without status epilepticus (principal) | CPT/HCPCS: 36415; 80185 ==

== ENCOUNTER → 2019-04-28 | Outpatient (CLI) | payer MEDICARE, OTHER | END | disposition home or self-care (01) | LOC: LABWHC1 13:36 | PROVIDERS: ATTEND Psychiatry & Neurology Neurology | DX: G40.909 Epilepsy, unspecified, not intractable, without status epilepticus (principal) | CPT/HCPCS: 36415; 80185 ==

== ENCOUNTER → 2019-07-20 | Outpatient (CLI) | payer MEDICARE, OTHER ==
--- NOTE | 2019-08-03 10:54 | P.ARTDOP ---
Arterial Doppler LOWER EXTREMITY ARTERIAL DOPPLER: DATE OF SERVICE: 07/20/2019 Reason for study: Bilateral leg numbness. Doppler waveforms: Multiphasic throughout on the left. Atypical distally on the right. Multiphasic proximally.. Pulse volume recording: []. Pressure gradients: Mild gradient below the knee on the right. Ankle-brachial indices: 0.86 on the right and greater than 1 on the left. Toe pressures: [] on the right, [] on the left Impression: Normal left side. Mild right SFA disease. Clinical correlation suggested.
== END | disposition home or self-care (01) ==
LOC: RADUSWWP 13:29
PROVIDERS: ATTEND Internal Medicine
DX: I70.201 Unspecified atherosclerosis of native arteries of extremities, right leg (principal)
CPT/HCPCS: 93923

== ENCOUNTER → 2020-05-09 | Outpatient (CLI) | payer MEDICARE, OTHER ==
--- NOTE | 2020-05-09 11:05 | XR ---
EXAMINATION TYPE: XR foot complete LT DATE OF EXAM: 05/09/2020 CLINICAL HISTORY: pain TECHNIQUE: Frontal, lateral and oblique images of the left foot are obtained. COMPARISON: None. FINDINGS: There is no acute fracture/dislocation evident. The joint spaces appear within normal valencia its. The overlying soft tissue appears unremarkable. IMPRESSION: There is no acute fracture or dislocation. ICD 10 NO FRACTURE, INITIAL EVALUATION
== END | disposition home or self-care (01) ==
LOC: RADXRMAIN 10:43
PROVIDERS: ATTEND Podiatrist Foot Surgery
DX: M79.675 Pain in left toe(s) (principal)

== ENCOUNTER 2021-08-21 17:31 | Emergency (ER) | payer MEDICARE, OTHER ==
[2021-08-21 18:23] VITALS: RESP 20
[2021-08-21] MEDS ORDERED: SODIUM CHLORIDE 0.9% 500 ML 500 ML IV STA (21:07)
--- NOTE | 2021-08-21 21:23 | XR ---
EXAMINATION TYPE: XR chest 2V DATE OF EXAM: 08/21/2021 COMPARISON: 11/02/2017 HISTORY: Lightheaded. TECHNIQUE: FINDINGS: Heart and mediastinum are normal. The lungs are clear of consolidation. There are no hilar masses. Costophrenic angles are clear. Bony thorax is intact. IMPRESSION: No active cardiopulmonary disease. Normal heart. No change.
--- NOTE | 2021-08-21 22:21 | ED ---
General Adult HPI - General Chief complaint: Upper Respiratory Infection Stated complaint: Covid test Time Seen by Provider: 08/21/21 20:17 Source: patient Mode of arrival: ambulatory Limitations: no limitations - History of Present Illness Initial comments: 81-year-old female patient is presented to the emergency Department with concerns for COVID-19. States she has been having intermittent lightheadedness especially with position change for the last couple of weeks. States she developed some nasal congestion and drainage is concerned she may have the virus. She denies any headache, blurred vision, double vision. Denies numbness, tingling, weakness to her extremities. Denies any blurred or double vision. Denies any nausea or vomiting. Denies diarrhea. States occasionally when she is walking she will lose her balance. She denies the room spinning. Patient denies any recent rash, fever, chills, shortness of breath, chest pain, abdominal pain, nausea, vomiting, diarrhea, constipation, back pain, hematuria, dysuria, urinary urgency, urinary frequency, or any other complaints. - Related Data Home Medications Medication Instructions Recorded Confirmed Butalb/APAP/Caff 50-325-40Mg 1 tab PO TID PRN 05/07/17 11/02/17 [Fioricet 50-325-40] Levothyroxine Sodium [Synthroid] 50 mcg PO QAM 05/07/17 11/02/17 Nortriptyline [Pamelor] 25 mg PO HS 05/07/17 11/02/17 Phenytoin Sodium Extended 100 mg PO QAM 05/07/17 11/02/17 [Dilantin] Phenytoin Sodium Extended 200 mg PO HS 05/07/17 11/02/17 [Dilantin] glipiZIDE [Glucotrol] 5 mg PO BID 05/07/17 11/02/17 ALPRAZolam [Xanax] 1 mg PO TID PRN 11/02/17 11/02/17 Ibuprofen [Motrin] 600 mg PO TID PRN 11/02/17 11/02/17 Lactulose 10 gm PO DAILY PRN 11/02/17 11/02/17 Previous Rx's Medication Instructions Recorded Insulin Glargine,Hum.rec.anlog 22 unit SQ HS #1 syr 11/04/17 [Lantus Solostar] Nitrofurantoin Monohyd/M-Cryst 100 mg PO Q12HR #14 cap 08/21/21 [Macrobid] Allergies Allergy/AdvReac Type Severity Reaction Status Date / Time hydrocodone [From Vicodin] AdvReac Nausea & Verified 08/21/21 18:20 Vomiting Review of Systems ROS Statement: Those systems with pertinent positive or pertinent negative responses have been documented in the HPI. ROS Other: All systems not noted in ROS Statement are negative. Past Medical History Past Medical History: Diabetes Mellitus, Seizure Disorder, Thyroid Disorder History of Any Multi-Drug Resistant Organisms: None Reported Past Surgical History: Cholecystectomy, Tubal Ligation Past Psychological History: No Psychological Hx Reported Smoking Status: Never smoker Past Alcohol Use History: Rare Past Drug Use History: None Reported - Past Family History Mother Additional Family Medical History / Comment(s): History of cancer... in her sleep General Exam Limitations: no limitations General appearance: alert, in no apparent distress, other (This is a well- developed, well-nourished, nontoxic elderly female patient in no acute distress.) Eye exam: Present: normal appearance, PERRL, EOMI. Absent: scleral icterus, conjunctival injection, nystagmus, periorbital swelling ENT exam: Present: normal exam, normal oropharynx, mucous membranes moist Respiratory exam: Present: normal lung sounds bilaterally. Absent: respiratory distress, wheezes, rales, rhonchi, stridor Cardiovascular Exam: Present: regular rate, normal rhythm, normal heart sounds. Absent: systolic murmur, diastolic murmur, rubs, gallop, clicks GI/Abdominal exam: Present: soft, normal bowel sounds. Absent: distended, te nderness, guarding, rebound, rigid Neurological exam: Present: alert, oriented X3, CN II-XII intact, normal gait, other (Rapid alternating movements normal) Expanded Speech: Present: fluid speech Cranial nerves: EOM's Intact: Normal, Nystagmus: Normal Cerebellar function: Finger to Nose: Normal Upper motor neuron: Moises Neglect: Normal, Pronator Drift: Normal Motor strength exam: RUE: 5, LUE: 5, RLE: 5, LLE: 5 Psychiatric exam: Present: normal affect, normal mood Skin exam: Present: warm, dry, intact, normal color. Absent: rash Course Vital Signs 08/21/21 08/21/21 08/21/21 18:20 22:48 23:53 Temperature 98.1 F 98 F Pulse Rate 98 79 Pulse Rate [ 85 Right Sitting Pulse Oximetery ] Pulse Rate [ 90 Right Standing Pulse Oximetery ] Pulse Rate [ 84 Right Supine Pulse Oximetery ] Respiratory 20 20 20 Rate Blood Pressure 143/84 143/87 Blood Pressure 158/86 [Left Arm Sitting] Blood Pressure 100/72 [Left Arm Standing] Blood Pressure 147/67 [Left Arm Supine] O2 Sat by Pulse 97 94 L 98 Oximetry EKG Findings - EKG Comments: EKG Findings:: EKG obtained at 2200 shows sinus rhythm with marked sinus arrhythmia. Ventricular rate is 68, CO interval 188, QRS duration 86, QTc 434, QTC 461. No evidence of ST elevation or depression. Medical Decision Making - Medical Decision Making 81-year-old female patient presents to the emergency department today for evaluation of nasal congestion, mild cough, lightheadedness. Lightheadedness his been going on for the last couple of weeks. Physical examination is unremarkable. She is neurologically intact with no focal deficits. Labs reviewed and did reveal mildly elevated CO2 at 35. Urinalysis did show evidence for infection with positive nitrite. EKG was unremarkable. She did have decreased blood pressure with standing with orthostatic vital signs. I did discuss findings and results with her. She was given 500 mL of normal saline. We discussed doing positions slowly. Complete antibiotic prescription for UTI. She is instructed to follow up with her primary care physician for recheck in 1- 2 days. Return parameters were discussed in detail. She verbalizes understanding and agrees with this plan. My attending is Dr. Paz. - Lab Data Result diagrams: 08/21/21 22:18 08/21/21 22:18 Lab Results 08/21/21 08/21/21 08/21/21 Range/Units 18:22 22:18 22:18 WBC 7.5 (3.8-10.6) k/uL RBC 4.38 (3.80-5.40) m/uL Hgb 13.7 (11.4-16.0) gm/dL Hct 40.7 (34.0-46.0) % MCV 92.9 (80.0-100.0) fL MCH 31.4 (25.0-35.0) pg MCHC 33.8 (31.0-37.0) g/dL RDW 12.6 (11.5-15.5) % Plt Count 449 (150-450) k/uL MPV 8.0 Neutrophils % 61 % Lymphocytes % 26 % Monocytes % 10 % Eosinophils % 0 % Basophils % 0 % Neutrophils # 4.5 (1.3-7.7) k/uL Lymphocytes # 1.9 (1.0-4.8) k/uL Monocytes # 0.7 (0-1.0) k/uL Eosinophils # 0.0 (0-0.7) k/uL Basophils # 0.0 (0-0.2) k/uL Sodium 140 (137-145) mmol/L Potassium 3.6 (3.5-5.1) mmol/L Chloride 97 L (98-107) mmol/L Carbon Dioxide 35 H (22-30) mmol/L Anion Gap 8 mmol/L BUN 20 H (7-17) mg/dL Creatinine 0.54 (0.52-1.04) mg/dL Est GFR (CKD-EPI)AfAm >90 (>60 ml/min/1.73 sqM) Est GFR (CKD-EPI)NonAf >90 (>60 ml/min/1.73 sqM) Glucose 102 H (74-99) mg/dL Plasma Lactic Acid Hany (0.7-2.0) mmol/L Calcium 9.2 (8.4-10.2) mg/dL Total Bilirubin 0.7 (0.2-1.3) mg/dL AST 76 H (14-36) U/L ALT 74 H (4-34) U/L Alkaline Phosphatase 103 (38-126) U/L Troponin I (0.000-0.034) ng/mL Total Protein 7.8 (6.3-8.2) g/dL Albumin 3.9 (3.5-5.0) g/dL Urine Color Urine Appearance (Clear) Urine pH (5.0-8.0) Ur Specific [place] (1.001-1.035) Urine Protein (Negative) Urine Glucose (UA) (Negative) Urine Ketones (Negative) Urine Blood (Negative) Urine Nitrite (Negative) Urine Bilirubin (Negative) Urine Urobilinogen (<2.0) mg/dL Ur Leukocyte Esterase (Negative) Urine RBC (0-5) /hpf Urine WBC (0-5) /hpf Ur Squamous Epith Cells (0-4) /hpf Urine Bacteria (None) /hpf Hyaline Casts (0-2) /lpf Urine Mucus (None) /hpf Coronavirus (PCR) Not Detected (Not Detectd) 08/21/21 08/21/21 08/21/21 Range/Units 22:18 22:18 22:52 WBC (3.8-10.6) k/uL RBC (3.80-5.40) m/uL Hgb (11.4-16.0) gm/dL Hct (34.0-46.0) % MCV (80.0-100.0) fL MCH (25.0-35.0) pg MCHC (31.0-37.0) g/dL RDW (11.5-15.5) % Plt Count (150-450) k/uL MPV Neutrophils % % Lymphocytes % % Monocytes % % Eosinophils % % Basophils % % Neutrophils # (1.3-7.7) k/uL Lymphocytes # (1.0-4.8) k/uL Monocytes # (0-1.0) k/uL Eosinophils # (0-0.7) k/uL Basophils # (0-0.2) k/uL Sodium (137-145) mmol/L Potassium (3.5-5.1) mmol/L Chloride (98-107) mmol/L Carbon Dioxide (22-30) mmol/L Anion Gap mmol/L BUN (7-17) mg/dL Creatinine (0.52-1.04) mg/dL Est GFR (CKD-EPI)AfAm (>60 ml/min/1.73 sqM) Est GFR (CKD-EPI)NonAf (>60 ml/min/1.73 sqM) Glucose (74-99) mg/dL Plasma Lactic Acid Hany 1.0 (0.7-2.0) mmol/L Calcium (8.4-10.2) mg/dL Total Bilirubin (0.2-1.3) mg/dL AST (14-36) U/L ALT (4-34) U/L Alkaline Phosphatase (38-126) U/L Troponin I <0.012 (0.000-0.034) ng/mL Total Protein (6.3-8.2) g/dL Albumin (3.5-5.0) g/dL Urine Color Yellow Urine Appearance Cloudy H (Clear) Urine pH 5.5 (5.0-8.0) Ur Specific [place] 1.023 (1.001-1.035) Urine Protein Trace H (Negative) Urine Glucose (UA) Negative (Negative) Urine Ketones 1+ H (Negative) Urine Blood Negative (Negative) Urine Nitrite Positive H (Negative) Urine Bilirubin Negative (Negative) Urine Urobilinogen 2.0 (<2.0) mg/dL Ur Leukocyte Esterase Large H (Negative) Urine RBC 2 (0-5) /hpf Urine WBC 101 H (0-5) /hpf Ur Squamous Epith Cells 5 H (0-4) /hpf Urine Bacteria Many H (None) /hpf Hyaline Casts 4 H (0-2) /lpf Urine Mucus Many H (None) /hpf Coronavirus (PCR) (Not Detectd) - Radiology Data Radiology results: report reviewed, image reviewed View x-ray of the chest obtained. Report was reviewed in its entirety. Impression by Dr. Marcos shows no active cardiopulmonary disease. Normal heart. No change. Disposition Clinical Impression: UTI (urinary tract infection), Lightheaded Disposition: HOME SELF-CARE Condition: Good Instructions (If sedation given, give patient instructions): Urinary Tract Infection in Women (ED), Lightheadedness (ED) Additional Instructions: Magalys fluids, especially water. Complete antibiotic prescription in full. Follow-up through primary care physician for recheck in 1-2 days. Return to the emergency department for any new, worsening, or concerning symptoms. Prescriptions: Nitrofurantoin Monohyd/M-Cryst [Macrobid] 100 mg PO Q12HR #14 cap Is patient prescribed a controlled substance at d/c from ED?: No Referrals: Ling Bains MD [Primary Care Provider] - 1-2 days Time of Disposition: 23:39
[2021-08-21 22:40] LABS: Basophils % (A) 0 %; Eosinophils % (A) 0 %; HCT 40.7 % (34.0-46.0); HGB 13.7 gm/dL (11.4-16.0); Lymphocytes # (A) 1.9 k/uL (1.0-4.8); Lymphocytes % (A) 26 %; MCH 31.4 pg (25.0-35.0); MCHC 33.8 g/dL (31.0-37.0); MCV 92.9 fL (80.0-100.0); Monocytes # (A) 0.7 k/uL (0-1.0); Monocytes % (A) 10 %; Neutrophils # (A) 4.5 k/uL (1.3-7.7); Neutrophils % (A) 61 %; Platelet Count 449 k/uL (150-450); RBC 4.38 m/uL (3.80-5.40); RDW 12.6 % (11.5-15.5); WBC 7.5 k/uL (3.8-10.6)
[2021-08-21 22:53] LABS: ALT 74 U/L (4-34); AST 76 U/L (14-36); African American GFR (CKD) >90 (>60 ml/min/1.73 sqM); Albumin 3.9 g/dL (3.5-5.0); Alkaline Phosphatase 103 U/L (38-126); Anion Gap 8 mmol/L; Blood Urea Nitrogen 20 mg/dL (7-17); Calcium 9.2 mg/dL (8.4-10.2); Carbon Dioxide 35 mmol/L (22-30); Chloride 97 mmol/L (98-107); Glucose 102 mg/dL (74-99); Non-African American GFR(CKD) >90 (>60 ml/min/1.73 sqM); Potassium 3.6 mmol/L (3.5-5.1); Sodium 140 mmol/L (137-145); Total Bilirubin 0.7 mg/dL (0.2-1.3); Total Protein 7.8 g/dL (6.3-8.2)
[2021-08-21 23:32] LABS: Appearance,Urine Cloudy (Clear); Bacteria,Urine Many /hpf; Bilirubin,Urine Negative (Negative); Blood,Urine Negative (Negative); Color,Urine Yellow; Glucose,Urine (UA) Negative (Negative); Hyaline Casts,Urine 4 /lpf (0-2); Ketones,Urine 1+ (Negative); Leukocyte Esterase,Urine Large (Negative); Mucus,Urine Many /hpf; Nitrite,Urine Positive (Negative); PH, Urine 5.5 (5.0-8.0); Protein,Urine Trace (Negative); RBC,Urine 2 /hpf (0-5); Specific Gravity,Urine 1.023 (1.001-1.035); Squamous Epithelial Cell,Urine 5 /hpf (0-4); WBC,Urine 101 /hpf (0-5)
[2021-08-21] MEDS ORDERED: NITROFURANTOIN MONOHYD/M-CRYST 100 MG CAP PO STA (23:38)
[2021-08-21 23:54] VITALS: BP 143/87; PULSE 79; TEMP 98
== END 2021-08-21 23:54 | disposition home or self-care (01) ==
LOC: EC 17:31
DX: N39.0 Urinary tract infection, site not specified (principal); E11.9 Type 2 diabetes mellitus without complications; G40.909 Epilepsy, unspecified, not intractable, without status epilepticus; Z20.822 Contact with and (suspected) exposure to COVID-19; Z79.899 Other long term (current) drug therapy; Z88.5 Allergy status to narcotic agent
CPT/HCPCS: 36415; 71046; 80053; 81001; 83605; 84484; 85025; 87086; 87635; 93005; 96360; 99284

== ENCOUNTER → 2021-12-19 | Outpatient (CLI) | payer MEDICARE, OTHER ==
--- NOTE | 2021-12-19 10:54 | XR ---
EXAMINATION TYPE: XR foot complete RT DATE OF EXAM: 12/19/2021 COMPARISON: None HISTORY: Pain lateral malleolus, fall 4 weeks prior TECHNIQUE: 3 view right foot FINDINGS: Degenerative joint changes with narrowing of the joint space present through the proximal d istal interphalangeal joint spaces. No acute or subacute fractures are evident. Achilles tendon calca jo ann heel spurs present. Follow up exams can be performed 7-10 days from acute trauma for continued pain. IMPRESSION: 1. No acute osseous abnormality right foot.
== END | disposition home or self-care (01) ==
LOC: RADXRMAIN 08:37
PROVIDERS: ATTEND Podiatrist Foot Surgery
DX: M79.671 Pain in right foot (principal); M25.774 Osteophyte, right foot

== ENCOUNTER 2022-12-07 08:18 | Emergency (ER) | payer MEDICARE, OTHER ==
[2022-12-07] MEDS ORDERED: LIDOCAINE 5% PATCH TOPICAL ONE (08:47)
[2022-12-07] MEDS ORDERED: KETOROLAC 15 MG/ML 1 ML VIAL IM STA (08:47)
--- NOTE | 2022-12-07 08:55 | ED ---
Fall HPI - General Chief Complaint: Fall Stated Complaint: Fall Pain in Leg/back Time Seen by Provider: 12/07/22 08:33 Source: patient, family, RN notes reviewed Mode of arrival: ambulatory Limitations: no limitations - History of Present Illness Initial Comments: This is an 82-year-old female who presents to the emergency department for a fall. Patient tripped and fell one week ago, landing on the left side of her body. Believes that she was lightheaded/dizzy shortly before she fell. However, she states that this happens when she stands up too quickly, which she believes is what happened this time. States that she hit her head. Unsure if she lost consciousness, but her meaqjvgf-aa-dfz states that she was a little drowsy for a couple of minutes afterwards. Currently denies any headaches, lightheadedness, or dizziness. She is not taking any blood thinners. She is continuing to have pain to her lower back and left knee. States that pain is relieved when she walks and stands up, worse when sitting down. She is taking Tylenol with minim al relief in her symptoms. Denies any fevers, chills, sore throat, cough, dyspnea, chest pain, palpitations, abdominal pain, nausea, vomiting, diarrhea, or headaches. MD Complaint: fall Onset/Timin -: week(s) - Related Data Home Medications Medication Instructions Recorded Confirmed Butalb/APAP/Caff 50-325-40Mg 1 tab PO TID PRN 05/07/17 11/02/17 [Fioricet 50-325-40] Levothyroxine Sodium [Synthroid] 50 mcg PO QAM 05/07/17 11/02/17 Nortriptyline [Pamelor] 25 mg PO HS 05/07/17 11/02/17 Phenytoin Sodium Extended 100 mg PO QAM 05/07/17 11/02/17 [Dilantin] Phenytoin Sodium Extended 200 mg PO HS 05/07/17 11/02/17 [Dilantin] glipiZIDE [Glucotrol] 5 mg PO BID 05/07/17 11/02/17 ALPRAZolam [Xanax] 1 mg PO TID PRN 11/02/17 11/02/17 Ibuprofen [Motrin] 600 mg PO TID PRN 11/02/17 11/02/17 Lactulose 10 gm PO DAILY PRN 11/02/17 11/02/17 Previous Rx's Medication Instructions Recorded Insulin Glargine,Hum.rec.anlog 22 unit SQ HS #1 syr 11/04/17 [Lantus Solostar] Nitrofurantoin Monohyd/M-Cryst 100 mg PO Q12HR #14 cap 08/21/21 [Macrobid] Diclofenac Sodium [Voltaren] 75 mg PO BID PRN #20 tab 12/07/22 Allergies Allergy/AdvReac Type Severity Reaction Status Date / Time hydrocodone [From Vicodin] AdvReac Nausea & Verified 12/07/22 08:29 Vomiting Review of Systems ROS Statement: Those systems with pertinent positive or pertinent negative responses have been documented in the HPI. ROS Other: All systems not noted in ROS Statement are negative. Past Medical History Past Medical History: Diabetes Mellitus, Seizure Disorder, Thyroid Disorder History of Any Multi-Drug Resistant Organisms: None Reported Past Surgical History: Cholecystectomy, Tubal Ligation Past Psychological History: No Psychological Hx Reported Smoking Status: Never smoker Past Alcohol Use History: Rare Past Drug Use History: None Reported - Past Family History Mother Additional Family Medical History / Comment(s): History of cancer... in her sleep General Exam Limitations: no limitations General appearance: alert, in no apparent distress Head exam: Present: atraumatic, normocephalic, normal inspection Eye exam: Present: normal appearance, PERRL, EOMI. Absent: scleral icterus, conjunctival injection, periorbital swelling Respiratory exam: Present: normal lung sounds bilaterally. Absent: respiratory distress, wheezes, rales, rhonchi, stridor Cardiovascular Exam: Present: regular rate, normal rhythm, normal heart sounds. Absent: systolic murmur, diastolic murmur, rubs, gallop, clicks Extremities exam: Present: other (Tenderness to palpation over the left patella with minor overlying swelling. 2+ DP and PT pulses. Full active and passive range of motion.) Back exam: Present: normal inspection, full ROM. Absent: tenderness Neurological exam: Present: alert, oriented X3, CN II-XII intact Psychiatric exam: Present: normal affect, normal mood Skin exam: Present: warm, dry, intact, normal color. Absent: rash Course Vital Signs 12/07/22 12/07/22 12/07/22 08:27 09:29 11:57 Temperature 97.8 F 98 F 97.8 F Pulse Rate 75 75 85 Respiratory 20 16 16 Rate Blood Pressure 137/77 134/76 157/76 O2 Sat by Pulse 99 99 96 Oximetry Medical Decision Making - Medical Decision Making This is an 82-year-old female who presents to the emergency department for lower back pain and left knee pain after a fall. Was pt. sent in by a medical professional or institution? @ -No Did you speak to anyone other than the patient for history? @ -Daughter in law Did you review nursing and triage notes? @ -Yes, and I agree, it is accurate with regards to the patient's symptoms. Were old charts reviewed? @ -No Differential Diagnosis? @ -Differential Back Injury: Fracture, contusion, dislocation, disc herniation, this is not meant to be an all-inclusive list. -Differential Knee Injury: Fracture, dislocation, sprain, contusion, meniscus injury, ACL/LCL/MCL/PCL injury, this is not meant to be an all-inclusive list. EKG interpreted by me (3pts min.)? @ -Sinus rhythm. Left axis deviation. Ventricular rate 67 beats per minute, VA interval 169 ms, QRS duration 109 ms, QTC 442 ms. X-rays interpreted by me (1pt min.)? @ -X-ray of the lumbar spine, chest, and left knee obtained. My interpretation identifies no acute fractures or dislocations. CT interpreted by me (1pt min.)? @ -Computed tomography scan of the brain and c-spine obtained. My interpretation identifies no evidence of an acute intracranial hemorrhage, skull fracture, or cervical spine fracture. What testing was considered but not performed? (CT, X-rays, U/S, labs)? Why? @ -None What meds were considered but not given? Why? @ -None Did you discuss the management of the patient with other professionals? @ -No Did you reconcile home meds? @ -No Was smoking cessation discussed for >3mins.? @ -No Was critical care preformed (if so, how long)? @ -No Were there social determinants of health that impacted care today? How? (Homelessness, low income, unemployed, alcoholism, drug addiction, transp ortation, low edu. Level, literacy, decrease access to med. care, senior care, rehab)? @ -No Was there de-escalation of care discussed even if they declined? (Discuss DNR or withdrawal of care, Hospice)? @ -No What co-morbidities impacted this encounter? (DM, HTN, Smoking, COPD, CAD, Cancer, CVA, Hep., AIDS, mental health diagnosis, sleep apnea, morbid obesity)? @ -DM, thyroid disorder, osteoarthritis Was patient admitted / discharged? @ -Discharged. Given that the patient reported dizziness before she fell, lab work in addition to the imaging studies were obtained. Lab work obtained and found to be nonactionable. X-ray of the lumbar spine, left patella, and chest obtained revealing no acute findings. Computed tomography scan of the brain and C-spine obtained as well, also revealing no acute process. Patient does have severe degenerative changes in the lumbar spine. She was given a lidocaine patch and IM Toradol, which did improve her symptoms. Patient overall felt improved and stable for discharge home. Advise she stand up slowly to reduce the risk of episodes of dizziness and falls in the future. Prescription for diclofenac provided with dosing instructions reviewed. Patient is instructed to take the Diclofenac with Tylenol if needed and avoid any other sjsp-aua-fqulozb anti-inflammatories such as ibuprofen with the Diclofenac. Also advised tekn-zxz-vkvhyyr lidocaine patches or creams if needed and she will follow up with her primary care provider for reevaluation of symptoms. Undiagnosed new problem with uncertain prognosis? @ -None Drug Therapy requiring intensive monitoring for toxicity (Heparin, Nitro, Insulin, Cardizem)? @ -None Were any procedures done? @ -None Diagnosis/symptom? @ -Fall, lower back pain, left knee pain Acute, or Chronic, or Acute on Chronic? @ -Acute Uncomplicated (without systemic symptoms) or Complicated (systemic symptoms)? @ -Uncomplicated Side effects of treatment? @ -None Exacerbation, Progression, or Severe Exacerbation] @ -Not applicable Poses a threat to life or bodily function? @ -No Return precautions reviewed in depth, the patient is instructed to return to the emergency department with any new, worsening, or concerning symptoms. Patient verbalized understanding. This case was discussed in detail with the attending ED physician, Dr. Cervantes. Presentation, findings, and treatment plan discussed in detail as well. - Lab Data Result diagrams: 12/07/22 09:52 12/07/22 09:52 Lab Results 12/07/22 12/07/22 12/07/22 Range/Units 09:52 09:52 09:52 WBC 8.7 (3.8-10.6) k/uL RBC 4.34 (3.80-5.40) m/uL Hgb 12.8 (11.4-16.0) gm/dL Hct 39.6 (34.0-46.0) % MCV 91.2 (80.0-100.0) fL MCH 29.6 (25.0-35.0) pg MCHC 32.4 (31.0-37.0) g/dL RDW 13.3 (11.5-15.5) % Plt Count 325 (150-450) k/uL MPV 7.4 Neutrophils % 77 % Lymphocytes % 14 % Monocytes % 6 % Eosinophils % 1 % Basophils % 0 % Neutrophils # 6.7 (1.3-7.7) k/uL Lymphocytes # 1.2 (1.0-4.8) k/uL Monocytes # 0.5 (0-1.0) k/uL Eosinophils # 0.1 (0-0.7) k/uL Basophils # 0.0 (0-0.2) k/uL PT 10.6 (9.0-12.0) sec INR 1.0 (<1.2) APTT 22.4 (22.0-30.0) sec Sodium 140 (137-145) mmol/L Potassium 4.1 (3.5-5.1) mmol/L Chloride 102 (98-107) mmol/L Carbon Dioxide 28 (22-30) mmol/L Anion Gap 10 mmol/L BUN 25 H (7-17) mg/dL Creatinine 0.84 (0.52-1.04) mg/dL Est GFR (CKD-EPI)AfAm 76 (>60 ml/min/1.73 sqM) Est GFR (CKD-EPI)NonAf 66 (>60 ml/min/1.73 sqM) Glucose 192 H (74-99) mg/dL Calcium 9.6 (8.4-10.2) mg/dL Magnesium 1.9 (1.6-2.3) mg/dL Total Bilirubin 0.4 (0.2-1.3) mg/dL AST 22 (14-36) U/L ALT 17 (4-34) U/L Alkaline Phosphatase 101 (38-126) U/L Troponin I (0.000-0.034) ng/mL Total Protein 7.6 (6.3-8.2) g/dL Albumin 4.4 (3.5-5.0) g/dL Urine Color Urine Appearance (Clear) Urine pH (5.0-8.0) Ur Specific [place] (1.001-1.035) Urine Protein (Negative) Urine Glucose (UA) (Negative) Urine Ketones (Negative) Urine Blood (Negative) Urine Nitrite (Negative) Urine Bilirubin (Negative) Urine Urobilinogen (<2.0) mg/dL Ur Leukocyte Esterase (Negative) Urine RBC (0-5) /hpf Urine WBC (0-5) /hpf Ur Squamous Epith Cells (0-4) /hpf Hyaline Casts (0-2) /lpf Urine Mucus (None) /hpf 12/07/22 12/07/22 Range/Units 09:52 09:52 WBC (3.8-10.6) k/uL RBC (3.80-5.40) m/uL Hgb (11.4-16.0) gm/dL Hct (34.0-46.0) % MCV (80.0-100.0) fL MCH (25.0-35.0) pg MCHC (31.0-37.0) g/dL RDW (11.5-15.5) % Plt Count (150-450) k/uL MPV Neutrophils % % Lymphocytes % % Monocytes % % Eosinophils % % Basophils % % Neutrophils # (1.3-7.7) k/uL Lymphocytes # (1.0-4.8) k/uL Monocytes # (0-1.0) k/uL Eosinophils # (0-0.7) k/uL Basophils # (0-0.2) k/uL PT (9.0-12.0) sec INR (<1.2) APTT (22.0-30.0) sec Sodium (137-145) mmol/L Potassium (3.5-5.1) mmol/L Chloride (98-107) mmol/L Carbon Dioxide (22-30) mmol/L Anion Gap mmol/L BUN (7-17) mg/dL Creatinine (0.52-1.04) mg/dL Est GFR (CKD-EPI)AfAm (>60 ml/min/1.73 sqM) Est GFR (CKD-EPI)NonAf (>60 ml/min/1.73 sqM) Glucose (74-99) mg/dL Calcium (8.4-10.2) mg/dL Magnesium (1.6-2.3) mg/dL Total Bilirubin (0.2-1.3) mg/dL AST (14-36) U/L ALT (4-34) U/L Alkaline Phosphatase (38-126) U/L Troponin I <0.012 (0.000-0.034) ng/mL Total Protein (6.3-8.2) g/dL Albumin (3.5-5.0) g/dL Urine Color Yellow Urine Appearance Clear (Clear) Urine pH 5.5 (5.0-8.0) Ur Specific [place] 1.019 (1.001-1.035) Urine Protein Trace H (Negative) Urine Glucose (UA) Negative (Negative) Urine Ketones Negative (Negative) Urine Blood Negative (Negative) Urine Nitrite Negative (Negative) Urine Bilirubin Negative (Negative) Urine Urobilinogen <2.0 (<2.0) mg/dL Ur Leukocyte Esterase Moderate H (Negative) Urine RBC 1 (0-5) /hpf Urine WBC 4 (0-5) /hpf Ur Squamous Epith Cells 2 (0-4) /hpf Hyaline Casts 8 H (0-2) /lpf Urine Mucus Few H (None) /hpf - Radiology Data Radiology results: report reviewed, image reviewed Disposition Clinical Impression: Fall, Left knee pain, Lower back pain Disposition: HOME SELF-CARE Instructions (If sedation given, give patient instructions): Fall Prevention for Older Adults (ED), Low Back Strain (ED) Additional Instructions: Return to the emergency department with any new, worsening, or concerning symptoms. You can take the diclofenac twice daily as needed for pain relief. If you choose to take this, do not take other ekzd-cdm-dktnisg anti- inflammatories such as ibuprofen with it. Follow up with your primary care provider in 1-2 days. Prescriptions: Diclofenac Sodium [Voltaren] 75 mg PO BID PRN #20 tab PRN Reason: Pain Is patient prescribed a controlled substance at d/c from ED?: No Referrals: Ling Bains MD [Primary Care Provider] - 1-2 days
--- NOTE | 2022-12-07 09:59 | XR ---
EXAMINATION TYPE: XR chest 2V DATE OF EXAM: 12/07/2022 COMPARISON: 08/21/2021 TECHNIQUE: PA and lateral views submitted. HISTORY: Syncope FINDINGS: The lungs are clear and there is no pneumothorax, pleural effusion, or focal pneumonia. Heart size normal and no overt failure. Osseous structures demonstrate hypertrophic and degenerative changes of the spine. Hyperinflation. Stable apical pleural thickening. Diffuse osteopenia with arthropathy of t he shoulders. IMPRESSION: 1. No acute process. Hyperinflation suggests COPD.
--- NOTE | 2022-12-07 10:06 | XR ---
EXAMINATION TYPE: XR knee complete LT DATE OF EXAM: 12/07/2022 COMPARISON: NONE HISTORY: Pain TECHNIQUE: Three views are submitted. FINDINGS: Diffuse osteopenia. Vascular calcifications. There is spurring along the medial margin of the femur a nd there is narrowing of the patellofemoral joint.. Osseous structures are intact. No acute fractur e seen. IMPRESSION: 1. No acute fracture or dislocation. Diffuse osteopenia and mild osteoarthritis.
--- NOTE | 2022-12-07 10:07 | XR ---
EXAM TYPE: LUMBAR SPINE X RAY SERIES COMPARISON: NONE HISTORY: Pain TECHNIQUE: 4 views are submitted. FINDINGS: Alignment is anatomic. The pedicles are intact. The transverse processes are intact. There is navi re degenerative disc disease L4-5 and moderate changes at L5-S1 and there is facet arthropathy at bot h levels. Vascular calcifications of the aorta. Diffuse osteopenia. IMPRESSION: 1. Severe degenerative disc disease L4-L5 with facet arthropathy and moderate changes at L5-S1.
[2022-12-07 10:26] VITALS: RESP 16
[2022-12-07 10:28] LABS: Basophils % (A) 0 %; Eosinophils # (A) 0.1 k/uL (0-0.7); Eosinophils % (A) 1 %; HCT 39.6 % (34.0-46.0); HGB 12.8 gm/dL (11.4-16.0); Lymphocytes # (A) 1.2 k/uL (1.0-4.8); Lymphocytes % (A) 14 %; MCH 29.6 pg (25.0-35.0); MCHC 32.4 g/dL (31.0-37.0); MCV 91.2 fL (80.0-100.0); Mean Platelet Volume 7.4; Monocytes # (A) 0.5 k/uL (0-1.0); Monocytes % (A) 6 %; Neutrophils # (A) 6.7 k/uL (1.3-7.7); Neutrophils % (A) 77 %; Platelet Count 325 k/uL (150-450); RBC 4.34 m/uL (3.80-5.40); RDW 13.3 % (11.5-15.5); WBC 8.7 k/uL (3.8-10.6)
[2022-12-07 10:29] LABS: Appearance,Urine Clear (Clear); Bilirubin,Urine Negative (Negative); Blood,Urine Negative (Negative); Color,Urine Yellow; Glucose,Urine (UA) Negative (Negative); Hyaline Casts,Urine 8 /lpf (0-2); Ketones,Urine Negative (Negative); Leukocyte Esterase,Urine Moderate (Negative); Mucus,Urine Few /hpf; Nitrite,Urine Negative (Negative); PH, Urine 5.5 (5.0-8.0); Protein,Urine Trace (Negative); RBC,Urine 1 /hpf (0-5); Specific Gravity,Urine 1.019 (1.001-1.035); Squamous Epithelial Cell,Urine 2 /hpf (0-4); Urobilinogen,Urine <2.0 mg/dL (<2.0); WBC,Urine 4 /hpf (0-5)
[2022-12-07 10:38] LABS: Partial Thromboplastin Time 22.4 sec (22.0-30.0); Prothrombin Time 10.6 sec (9.0-12.0)
[2022-12-07 10:44] LABS: Albumin 4.4 g/dL (3.5-5.0); Calcium 9.6 mg/dL (8.4-10.2); Magnesium 1.9 mg/dL (1.6-2.3); Potassium 4.1 mmol/L (3.5-5.1); Total Bilirubin 0.4 mg/dL (0.2-1.3); Total Protein 7.6 g/dL (6.3-8.2)
[2022-12-07 11:59] VITALS: BP 157/76; PULSE 85; TEMP 97.8
--- NOTE | 2022-12-07 12:25 | CT ---
EXAMINATION TYPE: CT brain cspine wo con CT DLP: 1151.9 mGycm, Automated exposure control for dose reduction was used. DATE OF EXAM: 12/07/2022 12:19 PM COMPARISON: CT brain C-spine 05/07/2017. CLINICAL INDICATION:Female, 82 years old with history of Fall, LOC; fall, LOC TECHNIQUE: Brain: Multiple axial CT images of the brain were obtained without IV contrast. Cspine: Axial CT images from the skull base to the inferior aspect of T2 we obtained without intraven ous contrast. Coronal and sagittal reformatted images were also reviewed. FINDINGS: Brain: Extra-axial spaces: No abnormal extra-axial fluid collections. Ventricular system: Within normal limits Cerebral parenchyma: Cerebral atrophy. No acute intraparenchymal hemorrhage or mass effect. The kenney -white junction is well differentiated. Scattered hypoattenuating areas are seen within the white mat ter. Stable benign calcified lesion within the left aspect of the radha. Cerebellum: Unremarkable. Mass effect: No evidence of midline shift. Intracranial vasculature: Atherosclerotic calcifications of the intracranial vessels. Soft tissues: Normal. Calvarium/osseous structures: No depressed skull fracture. Paranasal sinuses and mastoid air cells: Clear. Visualized orbits: Bilateral aphakia Cervical spine: Fracture: None. Osseous structures: Multilevel degenerative disc disease changes with endplate spurring and disc oste ophyte complex's. L2 level facet arthropathy. Vertebral alignment: Grade 1 anterolisthesis of C4 on C5 redemonstrated. Spinal canal/Neural Foramina: Disc osteophyte complexes at C4-C5 and C5-C6 with at least mild spinal canal stenosis. Facet joint uncovertebral joint arthropathy scattered throughout the cervical spine w ith varying degrees of neural foraminal stenosis. Neck soft tissues: Prevertebral soft tissues are within normal limits. Other: The airway is patent. Biapical pleural parenchymal scarring. Mild vascular calcification of jose th carotid bulbs. IMPRESSION: 1. No acute intracranial process. 2. Nonspecific white matter changes, likely secondary to chronic small vessel ischemic disease. 3. No evidence of cervical spine fracture. 4. Mild multilevel degenerative disc disease.
== END 2022-12-07 12:50 | disposition home or self-care (01) ==
LOC: EC 08:18
DX: M51.36 Other intervertebral disc degeneration, lumbar region (principal); M47.817 Spondylosis without myelopathy or radiculopathy, lumbosacral region; M25.562 Pain in left knee; E11.9 Type 2 diabetes mellitus without complications; E07.9 Disorder of thyroid, unspecified; Z79.890 Hormone replacement therapy; Z79.84 Long term (current) use of oral hypoglycemic drugs; Z88.6 Allergy status to analgesic agent; W01.0XXA Fall on same level from slipping, tripping and stumbling without subsequent striking against object, initial encounter
CPT/HCPCS: 36415; 93005; 80053; 83735; 84484; 85025; 85610; 85730; 81001; 72110; 73562; 71046; 72125; 70450; 99285; 96372; J1885

== ENCOUNTER → 2023-01-18 | Outpatient (CLI) | payer MEDICARE, OTHER ==
[2023-01-18 15:49] LABS: Basophils # (A) 0.07 X 10*3/uL (0.00-0.10); Basophils % (A) 0.8 %; Eosinophils # (A) 0.21 X 10*3/uL (0.04-0.35); Eosinophils % (A) 2.5 %; HCT 38.9 % (37.2-46.3); HGB 12.5 d/dL (12.0-15.0); Lymphocytes # (A) 2.63 X 10*3/uL (0.90-5.00); Lymphocytes % (A) 31.1 %; MCHC 32.1 d/dL (32.0-37.0); MCV 93.3 FL (80.0-97.0); Mean Platelet Volume 9.6 FL (9.5-12.2); Monocytes # (A) 1.05 X 10*3/uL (0.20-1.00); Monocytes % (A) 12.4 %; NRBC Per 100 WBC 0 X 10*3/uL (0.00-0.01); Neutrophils # (A) 4.47 X 10*3/uL (1.80-7.70); Neutrophils % (A) 52.8 %; Platelet Count 286 X 10*3/uL (140-440); RBC 4.17 X 10*6/uL (4.10-5.20); RDW 13.7 % (11.5-14.5); WBC 8.46 X 10*3/uL (4.50-10.00)
[2023-01-18 16:21] LABS: ALT 15 U/L (8-44); AST 16 U/L (13-35); Albumin 4.2 d/dL (3.8-4.9); Alkaline Phosphatase 93 U/L (41-126); Blood Urea Nitrogen 18.3 mg/dL (9.0-27.0); Calcium 9.6 mg/dL (8.7-10.3); Carbon Dioxide 25.9 mmol/L (21.6-31.8); Chloride 104 mmol/L (96-109); Chol/HDL Ratio 5.46 Ratio; Globulin 2.8 d/dL (1.6-3.3); Glucose 188 mg/dL (70-110); LDL Cholesterol,Calculated 169.3 mg/dL (0.0-131.0); Potassium 4.6 mmol/L (3.5-5.5); Sodium 142 mmol/L (135-145); T4, Free (Free Thyroxine) 1.17 ng/dL (0.80-1.80); Total Bilirubin <0.2 mg/dL (0.3-1.2)
[2023-01-18 21:58] LABS: Urine Creatinine 98.6 mg/dL (28.0-217.0)
== END | disposition home or self-care (01) ==
LOC: LABWHC1 08:00
PROVIDERS: ATTEND Nurse Practitioner
DX: Z51.81 Encounter for therapeutic drug level monitoring (principal); E11.9 Type 2 diabetes mellitus without complications; E55.9 Vitamin D deficiency, unspecified; Z79.899 Other long term (current) drug therapy
CPT/HCPCS: 36415; 80053; 80061; 82043; 82306; 82570; 83036; 84439; 84443; 85025

== ENCOUNTER → 2023-11-21 | Outpatient (CLI) | payer MEDICARE, OTHER ==
--- NOTE | 2023-11-21 09:25 | XR ---
EXAMINATION TYPE: XR lumbar spine 2 or 3V DATE OF EXAM: 11/21/2023 9:20 AM CLINICAL INDICATION:Female, 83 years old with history of M54.50 LUMBAR PAIN; [facility] COMPARISON: 12/07/2022. TECHNIQUE: XR lumbar spine 2 or 3V - Frontal, lateral and coned in L5-S1 lateral views of the spine. FINDINGS: No evidence of any acute osseous pathology. No evidence of loss of vertebral body height i s seen. There is normal alignment of the lumbar vertebral bodies. Mild scattered disc space narrowing . Multilevel marginal osteophyte formation throughout the visualized spine. There is facet joint arth ropathy throughout the spine. No foraminal stenosis worse at L5-S1 with at least moderate. Atheroscle rosis of the arterial vasculature. IMPRESSION: 1. No acute fracture. 2. Moderate multilevel disc degeneration worse at L4-L5 and L5-S1..
--- NOTE | 2023-11-21 14:21 | XR ---
EXAMINATION TYPE: XR Hip 2 views Bilateral and AP pelvis DATE OF EXAM: 11/21/2023 COMPARISON: NONE HISTORY: 83-year-old female M25.551, right hip pain from fall FINDINGS: Osteopenia. Moderately advanced degenerative disc disease and endplate spondylosis especially towards the left at L4-L5. SI joints appear symmetric and intact as is the pubic symphysis. There is severe, end-stage, hogv-wi-smps degenerative change along the superolateral weightbearing aspect of the left hip. Osteopenia limiting the assessment. No displaced fracture seen. IMPRESSION: 1. Osteopenia. No displaced fracture seen. 2. Severe, end-stage [id number] left hip OA.
== END | disposition home or self-care (01) ==
LOC: LABWHC1 08:22
PROVIDERS: ATTEND Family Medicine
DX: M51.37 Other intervertebral disc degeneration, lumbosacral region (principal); M16.12 Unilateral primary osteoarthritis, left hip; M85.852 Other specified disorders of bone density and structure, left thigh; E11.40 Type 2 diabetes mellitus with diabetic neuropathy, unspecified
CPT/HCPCS: 36415; 72100; 73521; 83036

== ENCOUNTER → 2024-07-13 | Outpatient (CLI) | payer MEDICARE, OTHER | END | disposition home or self-care (01) | LOC: LABT 10:07 | PROVIDERS: ATTEND Family Medicine | DX: E11.40 Type 2 diabetes mellitus with diabetic neuropathy, unspecified (principal); Z79.4 Long term (current) use of insulin | CPT/HCPCS: 36415; 83036 ==

== ENCOUNTER 2024-11-12 07:43 | Emergency (ER) | payer MEDICARE, OTHER ==
--- NOTE | 2024-11-12 08:13 | ED ---
Fall HPI - General Chief Complaint: Fall Stated Complaint: fall Time Seen by Provider: 11/12/24 07:49 Source: patient, RN notes reviewed Mode of arrival: EMS - History of Present Illness Initial Comments: 84-year-old female presenting to the emergency department via EMS after a fall at home. States that she was using the restroom this morning straining to have a bowel for quite some time. Patient states that after she was done using the restroom she went to stand up when she felt mildly lightheaded causing her to fall in the bathroom. Patient struck her head on the event that was on the ground. Patient denies loss of consciousness at the time of the fall. She states that she will occasionally experience a lightheaded sensation when she changes position such as from sitting to standing. Currently patient states that she is feeling well and is denying headache, visual changes, neck pain, chest pain, difficulty breathing. She is complaining of mild pain over her forehead where she struck her head on the ground. She is unaware when her last tetanus vaccination was - Related Data Home Medications Medication Instructions Recorded Confirmed Butalb/APAP/Caff 50-325-40Mg 1 tab PO TID PRN 05/07/17 11/02/17 [Fioricet 50-325-40] Levothyroxine Sodium [Synthroid] 50 mcg PO QAM 05/07/17 11/02/17 Nortriptyline [Pamelor] 25 mg PO HS 05/07/17 11/02/17 Phenytoin Sodium Extended 100 mg PO QAM 05/07/17 11/02/17 [Dilantin] Phenytoin Sodium Extended 200 mg PO HS 05/07/17 11/02/17 [Dilantin] glipiZIDE [Glucotrol] 5 mg PO BID 05/07/17 11/02/17 ALPRAZolam [Xanax] 1 mg PO TID PRN 11/02/17 11/02/17 Ibuprofen [Motrin] 600 mg PO TID PRN 11/02/17 11/02/17 Lactulose 10 gm PO DAILY PRN 11/02/17 11/02/17 Previous Rx's Medication Instructions Recorded Insulin Glargine,Hum.rec.anlog 22 unit SQ HS #1 syr 11/04/17 [Lantus Solostar] Nitrofurantoin Monohyd/M-Cryst 100 mg PO Q12HR #14 cap 08/21/21 [Macrobid] Diclofenac Sodium [Voltaren] 75 mg PO BID PRN #20 tab 12/07/22 Allergies Allergy/AdvReac Type Severity Reaction Status Date / Time hydrocodone [From Vicodin] AdvReac Nausea & Verified 11/12/24 07:47 Vomiting Review of Systems ROS Statement: Those systems with pertinent positive or pertinent negative responses have been documented in the HPI. ROS Other: All systems not noted in ROS Statement are negative. Past Medical History Past Medical History: Diabetes Mellitus, Seizure Disorder, Thyroid Disorder History of Any Multi-Drug Resistant Organisms: None Reported Past Surgical History: Cholecystectomy, Tubal Ligation Past Psychological History: No Psychological Hx Reported Smoking Status: Never smoker Past Alcohol Use History: Rare Past Drug Use History: None Reported - Past Family History Mother Additional Family Medical History / Comment(s): History of cancer... in her sleep General Exam Limitations: no limitations General appearance: alert, in no apparent distress Eye exam: Present: periorbital swelling, periorbital tenderness (left superior eyebrow laceration with mild ecchymosis) ENT exam: Present: normal exam, mucous membranes moist, other (anterior nasal bridge laceration, 5 mm, with ecchymosis and swelling) Neck exam: Present: normal inspection. Absent: tenderness, meningismus, lymphadenopathy Respiratory exam: Present: normal lung sounds bilaterally. Absent: respiratory distress, wheezes, rales, rhonchi, stridor Cardiovascular Exam: Present: regular rate, normal rhythm, normal heart sounds. Absent: systolic murmur, diastolic murmur, rubs, gallop, clicks GI/Abdominal exam: Present: soft, normal bowel sounds. Absent: distended, tenderness, guarding, rebound, rigid Extremities exam: Present: normal inspection, full ROM, normal capillary refill. Absent: tenderness, pedal edema, joint swelling, calf tenderness Back exam: Present: normal inspection Neurological exam: Present: alert, oriented X3, CN II-XII intact Course Vital Signs 11/12/24 11/12/24 07:44 10:37 Temperature 97.7 F 98 F Pulse Rate 82 80 Respiratory 20 18 Rate Blood Pressure 154/85 144/77 O2 Sat by Pulse 95 96 Oximetry Medical Decision Making - Medical Decision Making Was pt. sent in by a medical professional or institution (SKYE Whipple, NUTRIENT MANAGEMENT SPECIALIST, urgent care, hospital, or fci...) When possible be specific @ -No Did you speak to anyone other than the patient for history (EMS, parent, family, police, friend...)? What history was obtained from this source @ -No Did you review nursing and triage notes (agree or disagree)? Why? @ -I reviewed and agree with nursing and triage notes Were old charts reviewed (outside hosp., previous admission, EMS record, old EKG, old radiological studies, urgent care reports/EKG's, fci records)? Report findings @ -No old charts were reviewed Differential Diagnosis (chest pain, altered mental status, abdominal pain women, abdominal pain men, vaginal bleeding, weakness, fever, dyspnea, syncope, headache, dizziness, GI bleed, back pain, seizure, CVA, palpatations, mental health, musculoskeletal)? @ -Differential Syncope: Valvular disease, hypertrophic cardiomyopathy, pulmonary embolism, tamponade, tachycardia, bradycardia, NJ, hypovolemia, hemorrhage, dissection, anemia, intracranial hemorrhage, seizure, hypoglycemia, carbon monoxide poisoning, this is not meant to be an all-inclusive list. EKG interpreted by me (3pts min.). @ -Completed at 8 sinus rhythm with first-degree AV block and T wave inversions in lead aVL. Ventricular rate of 89, IN interval 234, QRS 117, QTc 443. X-rays interpreted by me (1pt min.). @ -None done CT interpreted by me (1pt min.). @ -CT of the facial bones soft tissue swelling of the left frontal region with possibility of nondisplaced maxillary spine fracture CT of the brain and C-spine without contrast no acute intracranial or cervical spine process. U/S interpreted by me (1pt. min.). @ -None done What testing was considered but not performed or refused? (CT, X-rays, U/S, labs)? Why? @ -None What meds were considered but not given or refused? Why? @ -None Did you discuss the management of the patient with other professionals (professionals i.e. SKYE Whipple, NUTRIENT MANAGEMENT SPECIALIST, lab, RT, psych nurse, psychiatric social worker supervisor, packing tractor machine operator, teacher, corrections officer, director case)? Give summary @ -No Was smoking cessation discussed for >3mins.? @ -No Was critical care preformed (if so, how long)? @ -No Were there social determinants of health that impacted care today? How? (Homelessness, low income, unemployed, alcoholism, drug addiction, transportation, low edu. Level, literacy, decrease access to med. care, longterm, rehab)? @ -No Was there de-escalation of care discussed even if they declined (Discuss DNR or withdrawal of care, Hospice)? DNR status @ -No What co-morbidities impacted this encounter? (DM, HTN, Smoking, COPD, CAD, Cancer, CVA, ARF, Chemo, Hep., AIDS, mental health diagnosis, sleep apnea, morbid obesity)? @ -None Was patient admitted / discharged? Hospital course, mention meds given and route, prescriptions, significant lab abnormalities, going to OR and other pertinent info. @ -Discharge. 84-year-old female presenting via EMS with c-collar in place after a fall. There is noted bruising over the patient's mid forehead with mild noted abrasions/lacerations over the forehead, lateral left eyebrow, inferior lateral left eye and anterior nasal bridge. Minor lacerations requiring Dermabond repair. Neurological examination completed with no acute deficits. CT of the brain and C-spine no acute intracranial cervical spine process, CT of the facial bones reveals mild nondisplaced maxillary spine fracture. Patient is provided with updated tetanus vaccination. Lacerations are cleansed with sterile water and repaired with Dermabond. Supportive treatment discussed at bedside. Recommend close follow-up with primary care provider. Return parameters discussed. Case discussed with Dr. Mason Undiagnosed new problem with uncertain prognosis? @ -No Drug Therapy requiring intensive monitoring for toxicity (Heparin, Nitro, Insulin, Cardizem)? @ -No Were any procedures done? @ -No Diagnosis/symptom? @ -fall,laceration, nasal bone fracture Acute, or Chronic, or Acute on Chronic? @ -acute Uncomplicated (without systemic symptoms) or Complicated (systemic symptoms)? @ -uncomplicated Side effects of treatment? @ -No Exacerbation, Progression, or Severe Exacerbation? @ -No Poses a threat to life or bodily function? How? (Chest pain, USA, NJ, pneumonia, PE, COPD, DKA, ARF, appy, cholecystitis, CVA, Diverticulitis, Homicidal, Suicidal, threat to staff... and all critical care pts) @ -No - Lab Data Result diagrams: 11/12/24 08:33 11/12/24 08:33 Lab Results 11/12/24 11/12/24 11/12/24 Range/Units 08:33 08:33 08:33 WBC 11.03 H (4.50-10.00) 10*3/uL RBC 4.37 (4.10-5.20) 10*6/uL Hgb 12.9 (12.0-15.0) g/dL Hct 37.8 (37.2-46.3) % MCV 86.5 (80.0-97.0) fL MCH 29.5 (27.0-32.0) pg MCHC 34.1 (32.0-37.0) g/dL Plt Count 360 (140-440) 10*3/uL MPV 9.1 L (9.5-12.2) fL Immature Gran % (Auto) 0.2 % Neutrophils % 71.4 % Lymphocytes % 18.0 % Monocytes % 9.0 % Eosinophils % 0.9 % Basophils % 0.5 % Immature Gran # 0.02 (0.00-0.04) 10*3/uL Neutrophils # 7.88 H (1.80-7.70) 10*3/uL Lymphocytes # 1.98 (0.90-5.00) 10*3/uL Monocytes # 0.99 (0.20-1.00) 10*3/uL Eosinophils # 0.10 (0.04-0.35) 10*3/uL Basophils # 0.06 (0.00-0.10) 10*3/uL PT 11.1 (10.0-12.5) sec INR 1.0 (<1.2) APTT 22.3 (22.0-30.0) sec Sodium 133 L (137-145) mmol/L Potassium 4.2 (3.5-5.1) mmol/L Chloride 95 L (98-107) mmol/L Carbon Dioxide 28 (22-30) mmol/L Anion Gap 10 mmol/L BUN 29 H (7-17) mg/dL Creatinine 1.44 H (0.52-1.04) mg/dL Est GFR (CKD-EPI)AfAm 39 (>60 ml/min/1.73 sqM) Est GFR (CKD-EPI)NonAf 34 (>60 ml/min/1.73 sqM) Glucose 278 H (74-99) mg/dL Calcium 9.5 (8.4-10.2) mg/dL Magnesium 2.2 (1.6-2.3) mg/dL Total Bilirubin 0.5 (0.2-1.3) mg/dL AST 23 (14-36) U/L ALT 16 (4-34) U/L Alkaline Phosphatase 128 H (38-126) U/L Troponin I (0.000-0.034) ng/mL Total Protein 7.5 (6.3-8.2) g/dL Albumin 4.2 (3.5-5.0) g/dL 11/12/24 Range/Units 08:33 WBC (4.50-10.00) 10*3/uL RBC (4.10-5.20) 10*6/uL Hgb (12.0-15.0) g/dL Hct (37.2-46.3) % MCV (80.0-97.0) fL MCH (27.0-32.0) pg MCHC (32.0-37.0) g/dL Plt Count (140-440) 10*3/uL MPV (9.5-12.2) fL Immature Gran % (Auto) % Neutrophils % % Lymphocytes % % Monocytes % % Eosinophils % % Basophils % % Immature Gran # (0.00-0.04) 10*3/uL Neutrophils # (1.80-7.70) 10*3/uL Lymphocytes # (0.90-5.00) 10*3/uL Monocytes # (0.20-1.00) 10*3/uL Eosinophils # (0.04-0.35) 10*3/uL Basophils # (0.00-0.10) 10*3/uL PT (10.0-12.5) sec INR (<1.2) APTT (22.0-30.0) sec Sodium (137-145) mmol/L Potassium (3.5-5.1) mmol/L Chloride (98-107) mmol/L Carbon Dioxide (22-30) mmol/L Anion Gap mmol/L BUN (7-17) mg/dL Creatinine (0.52-1.04) mg/dL Est GFR (CKD-EPI)AfAm (>60 ml/min/1.73 sqM) Est GFR (CKD-EPI)NonAf (>60 ml/min/1.73 sqM) Glucose (74-99) mg/dL Calcium (8.4-10.2) mg/dL Magnesium (1.6-2.3) mg/dL Total Bilirubin (0.2-1.3) mg/dL AST (14-36) U/L ALT (4-34) U/L Alkaline Phosphatase (38-126) U/L Troponin I <0.012 (0.000-0.034) ng/mL Total Protein (6.3-8.2) g/dL Albumin (3.5-5.0) g/dL Disposition Clinical Impression: Fall, Nasal bone fracture, Laceration Disposition: HOME SELF-CARE Condition: Good Instructions (If sedation given, give patient instructions): Fall Prevention for Older Adults (ED) Additional Instructions: Please return to the Emergency Department if symptoms worsen or any other concerns. Is patient prescribed a controlled substance at d/c from ED?: No Referrals: None,Stated [REFERRING] - 1-2 days Time of Disposition: 10:17
[2024-11-12] MEDS: TOPICAL SKIN ADHESIVE 1 EACH AMP TOPICAL ONE (08:40)
[2024-11-12] MEDS: DIPH,PERTUS(ACELL)TETVAC-LF 0.5 ML VIAL IM ONE (08:40)
[2024-11-12 08:57] LABS: Basophils # (A) 0.06 10*3/uL (0.00-0.10); Basophils % (A) 0.5 %; Eosinophils % (A) 0.9 %; HCT 37.8 % (37.2-46.3); HGB 12.9 g/dL (12.0-15.0); Lymphocytes # (A) 1.98 10*3/uL (0.90-5.00); MCH 29.5 pg (27.0-32.0); MCHC 34.1 g/dL (32.0-37.0); MCV 86.5 fL (80.0-97.0); Mean Platelet Volume 9.1 fL (9.5-12.2); Monocytes # (A) 0.99 10*3/uL (0.20-1.00); Neutrophils # (A) 7.88 10*3/uL (1.80-7.70); Neutrophils % (A) 71.4 %; Platelet Count 360 10*3/uL (140-440); RBC 4.37 10*6/uL (4.10-5.20); RDW 12.3 % (11.5-14.5); WBC 11.03 10*3/uL (4.50-10.00)
[2024-11-12 09:06] LABS: ALT 16 U/L (4-34); AST 23 U/L (14-36); African American GFR (CKD) 39 (>60 ml/min/1.73 sqM); Albumin 4.2 g/dL (3.5-5.0); Alkaline Phosphatase 128 U/L (38-126); Anion Gap 10 mmol/L; Blood Urea Nitrogen 29 mg/dL (7-17); Calcium 9.5 mg/dL (8.4-10.2); Carbon Dioxide 28 mmol/L (22-30); Chloride 95 mmol/L (98-107); Glucose 278 mg/dL (74-99); Magnesium 2.2 mg/dL (1.6-2.3); Non-African American GFR(CKD) 34 (>60 ml/min/1.73 sqM); Potassium 4.2 mmol/L (3.5-5.1); Sodium 133 mmol/L (137-145); Total Bilirubin 0.5 mg/dL (0.2-1.3); Total Protein 7.5 g/dL (6.3-8.2)
--- NOTE | 2024-11-12 09:47 | CT ---
EXAMINATION TYPE: CT brain lorenzoine wo con DATE OF EXAM: 11/12/2024 9:23 AM COMPARISON: None. CLINICAL INDICATION: Female, 84 years old with history of fall, pain, Fall, pain, pain TECHNIQUE: CT of the brain is performed utilizing 3 mm thick sections through the posterior fossa and 3 mm thick sections through the remaining calvarium. Study is performed within 24 hours of arrival to the hospital. Contrast used: mL of , (none if empty) CT DLP: 947.5 mGycm, Automated exposure control for dose reduction was used. FINDINGS: No abnormal hyperdensity is present to suggest an acute intracranial hemorrhage. There appears to be some stable calcification within the anterior falx just to the left of midline. There is a stable rounded area may be calcification in the left brainstem. This measures 0.8 cm. No acute infarcts are evident. Periventricular white matter hypodensity is present, likely on the ba sis of chronic white matter ischemic changes. Ventricles and sulci are prominent for the patient age. Paranasal sinuses and mastoid air cells within the [id number] are clear. There is some soft tissue swelling over the left frontal region. No underlying fracture is evident IMPRESSIONS: 1. No acute intracranial process. Follow-up MRI can be performed as clinically indicated. 2. Chronic appearing periventricular white matter ischemic-type changes with atrophy. 3. Stable rounded calcification left brain stem. 4. Soft tissue swelling left frontal region CT cervical spine. COMPARISON: 12/07/2022 TECHNIQUE: CT of the cervical spine is performed in the axial plane at 2 mm thick sections. Reconstr ucted images in the coronal, and sagittal plane are reviewed on the computer. FINDINGS: No acute fractures are evident. Minimal grade 1 spondylolisthesis of C4 anteriorly on C5 may be present. Disc heights are preserved. Vertebral body heights are preserved. No spinal canal stenosis is evident. Foraminal narrowing from uncovertebral joint hypertrophy is present at C4-5 C5-6 . Some apical scarring appears to be present. IMPRESSION: 1. Minimal grade 1 spondylolisthesis of C4 anterior and C5 [facility], , 11/12/2024 9:45 AM
[2024-11-12 09:52] LABS: Partial Thromboplastin Time 22.3 sec (22.0-30.0); Prothrombin Time 11.1 sec (10.0-12.5)
--- NOTE | 2024-11-12 09:52 | CT ---
EXAMINATION TYPE: CT facial bones wo con DATE OF EXAM: 11/12/2024 9:19 AM COMPARISON: None. CLINICAL INDICATION: Female, 84 years old with history of fall, pain, Fall, pain TECHNIQUE: The paranasal sinuses are examined in the axial plane at 2 mm thick sections. Reconstruct ed images in the coronal plane were obtained. Contrast used: mL of , (none if empty) Oral contrast used: (none if empty) CT DLP: 947.5 mGycm, Automated exposure control for dose reduction was used. FINDINGS: Patient is a dentulous. The maxillary sinuses are clear. The ethmoid air cells are clear. The sphenoid sinuses are clear. The frontal sinuses are clear. The septum is evaluated. There is septal deviation to the left. The ostiomeatal units are patent. Soft tissue swelling over the left frontal region. No acute fractures are evident. There appears to b e fracture of the distal nasal bone Greater wings of sphenoid are normal. Correlate for pain at the m axillary spine. Nondisplaced fracture is not excluded. Zygomatic arches are normal. IMPRESSION: 1. Soft tissue swelling left frontal region. 2. Nasal bone fractures. 3. Nondisplaced maxillary spine fracture not excluded. Correlate for pain. [facility], , 11/12/2024 9:50 AM
[2024-11-12 10:39] VITALS: BP 144/77; PULSE 80; RESP 18; TEMP 98
== END 2024-11-12 10:40 | disposition home or self-care (01) ==
LOC: EC 07:43
DX: S02.2XXA Fracture of nasal bones, initial encounter for closed fracture (principal); I44.0 Atrioventricular block, first degree; Z23 Encounter for immunization; Z88.5 Allergy status to narcotic agent; W19.XXXA Unspecified fall, initial encounter; Y92.002 Bathroom of unspecified non-institutional (private) residence as the place of occurrence of the external cause
CPT/HCPCS: 12011; 36415; 70450; 70486; 72125; 80053; 83735; 84484; 85025; 85610; 85730; 90471; 90715; 93005; 99284